=== PATIENT | female | born 1950 | race Caucasian/White ===

== ENCOUNTER 2017-04-24 09:19 | Inpatient (IN) | payer OTHER ==
[~2017-04-24 09:19] MED LIST: BACITRACIN 50,000 UNITS/10 ML SYR IRR ONE; BUPIVACAINE/EPI 0.25% 30 ML SDV ONE; THROMBIN (BOVINE) 20,000 UNIT VIAL TP ONE
[2017-04-24] MEDS ORDERED: ceFAZolin 2 GM/DEXTROSE 100 ML IV ONE (09:28)
[2017-04-24] MEDS ORDERED: LIDOCAINE 1% 2 ML INJ ID PRN (09:31)
[2017-04-24] MEDS ORDERED: LR 1,000 ML IV ONE (09:31)
[2017-04-24] MEDS ORDERED: POLYMYXIN B SULFATE 500,000 UNIT/10 ML SYR IRR ONE (11:17)
--- NOTE | 2017-04-24 11:46 | PDANEPAE ---
ANE Past Medical History - Cardiovascular History Hx Hypertension: No Hx Arrhythmias: No Hx Chest Pain: No Hx Coronary Artery / Peripheral Vascular Disease: No Hx CHF / Valvular Disease: No Hx Palpitations: No Cardiovascular History Comment: pcp watches bp, was on bystolic previously but bp was going to low so they dc'd it - Pulmonary History Hx COPD: No Hx Asthma/Reactive Airway Disease: No Hx Recent Upper Respiratory Infection: No Hx Oxygen in Use at Home: No Hx Sleep Apnea: No Sleep Apnea Screening Result - Last Documented: Negative - Neurologic History Hx Cerebrovascular Accident: Yes Hx Seizures: No Hx Dementia: No Neurologic History Comment: hx of cervical and lumbar fusions. 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 peripheral neuropathy. numbness and tingling to legs - Endocrine History Hx Diabetes: Yes Endocrine History Comment: type 2 - Renal History Hx Renal Disorders: No - Liver History Hx Hepatic Disorders: No - Neurological & Psychiatric Hx Hx Neurological and Psychiatric Disorders: Yes Neurological / Psychiatric History Comment: depression - Cancer History Hx Cancer: No - Congenital Disorder History Hx Congenital Disorders: No - GI History Hx Gastrointestinal Disorders: Yes Gastrointestinal History Comment: reflux occ uses zantac - Other Health History Other Health History: wears glasses/ contacts. upper denture. eczema occ - Chronic Pain History Chronic Pain: Yes (back, left leg, foot and arm) - Surgical History Prior Surgeries: 2016 left hip surgery from fall. cervical fusion c3-6 2007 or 2008. lower lumbar ANE Review of Systems - Exercise capacity METS (RN): 4 METS ANE Patient History - Allergies Allergies/Adverse Reactions: latex Allergy (Intermediate, Verified 04/07/17 14:06) Rash bacitracin [From Neosporin ([id number])] Allergy (Verified 04/24/17 10:32) neomycin [From Neosporin ([id number])] Allergy (Verified 04/24/17 10:32) Penicillins Allergy (Verified 04/07/17 14:06) Rash polymyxin B [From Neosporin ([id number])] Allergy (Verified 04/24/17 10:33) SWELLING AT SITE IT WAS APPLIED - Home Medications Home Medications: Cyclobenzaprine [Flexeril 10 MG (*)] 10 mg PO HS 04/07/17 [Last Taken 04/23/17] Diazepam [Valium 10 MG (*)] 10 mg PO DAILY PRN 04/07/17 [Last Taken 1 Month Ago] fentaNYL [Duragesic 50 MCG Patch (*)] 50 mcg TD Q72H 04/07/17 [Last Taken 06:00] metFORMIN HCL [Glucophage 500 mg (*)] 500 mg PO BIDMEAL 04/07/17 [Last Taken 09:00] oxyCODONE IR [Oxycodone Ir (*)] 5 mg PO Q4HRS 04/07/17 [Last Taken 04/24/17 06: 00] Alendronate Sodium [Fosamax 70 MG (*)] 70 mg PO SINGER@0700 04/24/17 [Last Taken ] Latanoprost 0.005% [Xalatan 0.005% (*)] 1 drops EACHEYE HS 04/24/17 [Last Taken 04/23/17] Ranitidine HCl [Zantac] 300 mg PO DAILY PRN 04/24/17 [Last Taken 04/24/17 06:00] - NPO status NPO Since - Liquids (Date): 04/23/17 NPO Since - Liquids (Time): 21:00 NPO Since - Solids (Date): 04/23/17 NPO Since - Solids (Time): 20:00 - Smoking Hx Smoking Status: Former smoker - Family Anes Hx Family Hx Anesthesia Complications: none ANE Labs/Vital Signs - Vital Signs Blood Pressure: 135/88 Heart Rate: 78 Respiratory Rate: 18 O2 Sat (%): 94 Height: 171.45 cm Weight: 72.575 kg ANE Physical Exam - Airway Mallampati Score: Class 2 Mouth exam: dentures - ASA Status ASA Status: III
[2017-04-24] MEDS ORDERED: PROPOFOL 200 MG/20 ML VIAL ONE (12:00)
[2017-04-24] MEDS ORDERED: MIDAZOLAM 2 MG/2 ML VIAL ONE (12:00)
[2017-04-24] MEDS ORDERED: fentaNYL 100 MCG/2 ML INJ ONE ×6 (12:00→17:19)
[2017-04-24] MEDS ORDERED: PROPOFOL/EMULSION 500 MG/50 ML BOTTLE IV ONE ×2 (12:01→14:55)
[2017-04-24] MEDS ORDERED: ONDANSETRON 4 MG/2 ML VIAL ONE (12:02)
[2017-04-24] MEDS ORDERED: PHENYLEPHRINE HCL 100 MCG/ML SYR ONE (12:02)
[2017-04-24] MEDS ORDERED: ROCURONIUM 50 MG/5 ML VIAL ONE (12:02)
--- NOTE | 2017-04-24 13:34 | PDHPUP ---
History & Physical Update H&P update statement: This history and physical update is based on an assessment of the patient which was completed after admission or registration (within 24 hours), but prior to the surgery/procedure. H&P update: H&P reviewed & patient examined, no change in patient's condition since H&P completed
[2017-04-24] MEDS ORDERED: BUPIVACAINE/EPI 0.25% 30 ML SDV ONE (14:54)
[2017-04-24] MEDS ORDERED: BUPIVACAINE 0.25% 30 ML SDV ONE (15:44)
[2017-04-24] MEDS ORDERED: BISACODYL 10 MG SUPP PR PRN (16:03)
[2017-04-24] MEDS ORDERED: diphenhydrAMINE 25 MG CAP PO PRN (16:03)
[2017-04-24] MEDS ORDERED: LACTULOSE 20 GM/30 ML UDCUP PO PRN (16:03)
[2017-04-24] MEDS ORDERED: NALOXONE HCL 0.4 MG/ML INJ IVP PRN ×2 (16:03→16:18)
[2017-04-24] MEDS ORDERED: MAGNESIUM HYDROXIDE 30 ML UDCUP PO PRN (16:03)
[2017-04-24] MEDS ORDERED: ONDANSETRON 4 MG/2 ML VIAL IVP PRN (16:03)
[2017-04-24] MEDS ORDERED: LR 500 ML IV PRN (16:18)
[2017-04-24] MEDS ORDERED: PROMETHAZINE HCL 25 MG/ML INJ IVP PRN (16:18)
[2017-04-24] MEDS ORDERED: MEPERIDINE 25 MG/ML SYR IVP PRN (16:18)
--- NOTE | 2017-04-24 16:19 | SOAPPROG ---
SOAP Progress Note Assessment/Plan: Assessment: 67 yo F sp C3/4, C5/6 ACDF and C3-6 posterior fusion Plan: stable to step down for pain managemnt PT/OT hard collar for 1 month lovenox starts POD #3 please call with neuro changes 04/24/17 16:19 Subjective: + neck pain, no arm pain Objective: Vital Signs Temp Pulse Resp BP Pulse Ox 36.8 C 78 18 135/88 H 94 04/24/17 11:52 04/24/17 11:52 04/24/17 11:52 04/24/17 11:52 04/24/17 11:52 awake, alert PERRL, No facial droop MAMADOU x 4, 5/5 + light touch ICD10 Worksheet Patient Problems: Problems Problem Status Onset Fusion of spine of lumbar region Acute DVT (deep venous thrombosis) Acute Pulmonary embolism Acute - ICD10 Problem Qualifiers (1) Fusion of spine of lumbar region
--- NOTE | 2017-04-24 16:20 | POSTANESTH ---
Post Anesthetic Evaluation Cardiovascular Status: Normal, Stable Respiratory Status: Normal, Stable Level of Consciousness/Mental Status: Can Participate in Eval Pain Control: Adequate, Prn Tx Ordered Nausea/Vomiting Control: Adequate, Prn Tx Ordered
[2017-04-24] MEDS: fentaNYL 100 MCG/2 ML INJ IVP PRN ×5 (16:26→17:20)
[2017-04-24] MEDS: fentaNYL 50 MCG PATCH TD SCH (16:50)
[2017-04-24] MEDS: DIAZEPAM 10 MG/2 ML SYR IVP PRN (20:43)
[2017-04-24] MEDS: FAMOTIDINE 20 MG TAB PO SCH (21:47)
[2017-04-24] MEDS: SENNOSIDES/DOCUSATE SODIUM TAB PO SCH (21:47)
[2017-04-24] MEDS: ACETAMINOPHEN 500 MG TAB PO SCH (21:55)
[2017-04-24] MEDS: oxyCODONE IR 5 MG TAB PO PRN (21:57)
[2017-04-24] MEDS: ceFAZolin 2 GM/DEXTROSE 100 ML IV SCH (21:58)
[2017-04-24] MEDS: POLYETHYLENE GLYCOL 3350 17 GM PKT PO SCH (21:58)
[2017-04-25] MEDS: DIAZEPAM 10 MG/2 ML SYR IVP PRN ×4 (01:08→21:08)
[2017-04-25] MEDS: oxyCODONE IR 5 MG TAB PO PRN (04:35)
[2017-04-25] MEDS: ceFAZolin 2 GM/DEXTROSE 100 ML IV SCH (04:36)
[2017-04-25 05:08] LABS: % IMMATURE GRANULYOCYTES 0.4 % (0.0-1.1); ABSOLUTE IMMATURE GRANULOCYTES 0.03 10^3/uL (0.00-0.10); ADD DIFF? NO; ADD MORPH? NO; ADD SCAN? NO; ATYPICAL LYMPHOCYTE FLAG 0 (0-99); FRAGMENT RBC FLAG 0 (0-99); HEMOGLOBIN 12.1 g/dL (12.6-16.3); LEFT SHIFT FLG 0 (0-99); LIPEMIA HEMOLYSIS FLAG 80 (0-99); MEAN CELL HEMOGLOBIN 30.9 pg (27.9-34.1); MEAN CELL HEMOGLOBIN CONCENTR. 32.7 g/dL (32.4-36.7); MEAN CELL VOLUME 94.6 fL (81.5-99.8); MEAN PLATELET VOLUME 9.8 fL (8.7-11.7); PLATELET CLUMPS FLAG 0 (0-99); PLATELET COUNT 146 10^3/uL (150-400); RED BLOOD CELL COUNT 3.91 10^6/uL (4.18-5.33); RED CELL DISTRIBUTION WIDTH 11.9 % (11.5-15.2)
[2017-04-25 05:20] LABS: ANION GAP 9 mEq/L (8-16); CALCIUM 8.4 mg/dL (8.5-10.4); CARBON DIOXIDE 24 mEq/l (22-31); CHLORIDE 106 mEq/L (97-110); CREATININE 0.6 mg/dL (0.6-1.0); GLOMERULAR FILTRATION RATE > 60; GLUCOSE 126 mg/dL (70-100); POTASSIUM 4.3 mEq/L (3.5-5.2); SODIUM 139 mEq/L (134-144)
[2017-04-25] MEDS: METHOCARBAMOL 750 MG TAB PO PRN (06:04)
[2017-04-25] MEDS: ACETAMINOPHEN 500 MG TAB PO SCH ×3 (06:04→21:14)
[2017-04-25] MEDS: NS 1,000 ML IV SCH (07:35)
--- NOTE | 2017-04-25 07:58 | SOAPPROG ---
SOAP Progress Note Assessment/Plan: Assessment: 67 yo female POD #1 s/p C3/4 redo acdf and C5/6 acdf with C3-6 posterior fusion chronic pain neuro stable Plan: transfer to floor after swallow eval PT/OT as tolerated today Cervical xrays today continue hard collar continue both JOSEPH drains DC aguillon Subjective: awake, alert, pain controlled, but requiring a lot of medications as expected She is swallowing water denies new numbness, tingling or weakness Objective: Vital Signs Temp Pulse Resp BP Pulse Ox 36.8 C 93 10 L 94/51 L 95 04/25/17 07:51 04/25/17 07:51 04/25/17 07:51 04/25/17 07:51 04/25/17 07:51 Laboratory Results 04/25/17 04:59 04/25/17 04:59 04/24/17 04/25/17 04/26/17 05:59 05:59 05:59 Intake Total 1781 Output Total 1635 Balance 146 Neuro: BRODY, sens +LT follows commands Ant/post dressings:CDI Ant JOSEPH:90ml Post JOSEPH: 270ml ICD10 Worksheet Patient Problems: Problems Problem Status Onset Fusion of spine of lumbar region Acute DVT (deep venous thrombosis) Acute Pulmonary embolism Acute
[2017-04-25] MEDS: SENNOSIDES/DOCUSATE SODIUM TAB PO SCH ×2 (10:30→21:14)
[2017-04-25] MEDS: FAMOTIDINE 20 MG TAB PO SCH ×2 (10:30→21:14)
[2017-04-25] MEDS: POLYETHYLENE GLYCOL 3350 17 GM PKT PO SCH ×3 (10:30→21:27)
[2017-04-25] MEDS: HYDROmorphONE/DILAUDID 6 MG/30 ML PCA IV PRN (18:15)
--- NOTE | 2017-04-25 20:32 | GOP ---
[f rep st] OPERATIVE REPORT DATE OF OPERATION: 04/24/2017 SURGEON: Gagan Hoang MD ACOUSTICAL INSTALLER: DENIZ Waldron ANESTHESIA: General endotracheal. 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 Adjacent level degeneration and spinal stenosis with spinal cord compression at C3-4. Progressive cervical spondolytic myelopathy. 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 Adjacent level degeneration and spinal stenosis with spinal cord compression at C3-4. Progressive cervical spondolytic myelopathy. PROCEDURE PERFORMED: C3-C6 posterior segmental (lateral mass screw) fixation and posterolateral fusion with local autograft, bone morphogenic protein, and morcellized Allograft. I used the intraoperative microscopy and fluoroscopy. FINDINGS: ESTIMATED BLOOD LOSS: 50 cc. INDICATIONS: The patient is a 67-year-old woman with intractable neck pain and progressive myelopathic symptoms secondary to a pseudoarthrosis/nonunion at the C5-6 level, status post a prior C4-6 anterior cervical diskectomy arthrodesis with plating. She also has adjacent degeneration at the C3-4 level with a large disk herniation and severe central canal stenosis and spinal cord compression. She present now for decompression and stabilization at that level, as well as the revision surgery at C5-6 and exploration of the spinal fusion at C4-5. DESCRIPTION OF PROCEDURE: After informed consent was obtained, and the anterior portion of the procedure was complete, the patient was repositioned prone with the head in the Carvajal beater head. The posterior cervical region was prepped and draped in sterile fashion. After fluoroscopic localization at the correct levels, the subcutaneous and intramuscular tissues were infiltrated with local anesthesia. A midline linear incision was then created from approximately C3 through C6, carried to the spinous processes. The dissection was carried down through the spinous processes, which were then incised using a monopolar electrocautery and the tissues carried in an avascular plane along the spinous processes and out the lamina bilaterally. The minimally invasive retractors were inserted and lateral mass screws were placed at C3, C4, C5 and C6 bilaterally. Each individual screw was tested neurophysiologically with monopolar electrical stimulation and interpretation of potentials by the surgeon. The rods were then placed and secured under maximal lordosis. The facet joints and lateral masses and laminae were then extensively decorticated and the residual local autograft along with bone morphogenic protein and morcellized Allograft was placed out laterally for posterolateral fusion from C3 through C6. Following this, a drain was placed. The subcutaneous and intramuscular tissues were re-infiltrated with local anesthesia and the wound was closed in layered fashion using interrupted Vicryl sutures followed by Steri -Strips on the skin. COMPLICATIONS: None. DISPOSITION: The patient is currently in the process of being repositioned for extubation. /[id number]/MODL MTDD
[2017-04-26] MEDS: DIAZEPAM 10 MG/2 ML SYR IVP PRN ×2 (02:22→14:31)
[2017-04-26] MEDS: HYDROmorphONE/DILAUDID 6 MG/30 ML PCA IV PRN (05:08)
[2017-04-26] MEDS: METHOCARBAMOL 750 MG TAB PO PRN ×3 (06:16→19:00)
[2017-04-26] MEDS: ACETAMINOPHEN 500 MG TAB PO SCH ×3 (06:16→20:38)
[2017-04-26] MEDS: SENNOSIDES/DOCUSATE SODIUM TAB PO SCH ×2 (08:33→20:38)
[2017-04-26] MEDS: FAMOTIDINE 20 MG TAB PO SCH ×2 (08:33→20:38)
[2017-04-26] MEDS: HYDROCODONE/APAP 10/325 TAB PO PRN ×3 (08:34→20:38)
[2017-04-26] MEDS: POLYETHYLENE GLYCOL 3350 17 GM PKT PO SCH ×3 (08:34→20:38)
--- NOTE | 2017-04-26 09:29 | NEUSURGPN ---
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 States muscle relaxants help. Objective: AAOx3 NAD VSS MAEx4 Motor 5/5 BUE anterior and posterior incisions dressed hard collar on JPx2 with serosanguineous dc in bulb Urinary Catheter in Place: No Catheter Insertion Date: 04/24/17 - Physician Discussed Patient with : Viktor Neurosurgery Physical Exam - Vitals, I&O, Labs I and O 04/25/17 04/26/17 04/27/17 05:59 05:59 05:59 Intake Total 1781 2217 Output Total 1635 1475 150 Balance 146 742 -150 Weight 74.8 kg Intake: Oral (ml) 100 450 IV Intake (ml) 650 IV Infused (ml) 1031 1767 Ns 1,000 ml @ 75 mls/hr 831 1767 IV CONT ERAN Rx#: [id number] ceFAZolin 2 GM/DEXTROSE 200 100 ml @ 200 mls/hr IV Q8H ERAN Rx#:[id number] Output: Urine (ml) 1275 1350 150 Bedside Commode 1100 150 Catheter 1275 250 JOSEPH Drain Output (ml) 360 125 #1 Anterior Neck Marvin 90 30 Flores #2 Posterior Neck Marvin 270 95 Flores Other: Intake Quantity No No Sufficient Number of Voids Bedside Commode 1 Vital Signs Temp Pulse Resp BP Pulse Ox 36.9 C 95 13 137/73 H 95 04/26/17 07:51 04/26/17 07:51 04/26/17 04:00 04/26/17 07:51 04/26/17 07:51 Laboratory Results 04/25/17 04:59 04/25/17 04:59 ICD10 Worksheet Patient Problems: Problems Problem Status Onset Fusion of spine of lumbar region Acute DVT (deep venous thrombosis) Acute Pulmonary embolism Acute
[2017-04-26] MEDS: oxyCODONE IR 5 MG TAB PO PRN ×2 (11:48→17:29)
--- NOTE | 2017-04-26 14:14 | GOP ---
[f rep st] OPERATIVE REPORT DATE OF OPERATION: 04/24/2017 SURGEON: Gagan Hoang MD LOGISTICAL ENGINEER: DENIZ Waldron. ANESTHESIA: General endotracheal. PREOPERATIVE DIAGNOSIS: C5-6 nonunion/pseudoarthrosis status post C4 through C6 anterior cervical d iskectomy and fusion with plating. Adjacent level degeneration and spinal stenosis with spinal cord compression at C3-4. Progressive cervical spondylitic myelopathy. POSTOPERATIVE DIAGNOSIS: C5-6 nonunion/pseudoarthrosis status post C4 through C6 anterior cervical diskectomy and fusion with plating. Adjacent level degeneration and spinal stenosis with spinal cord compression at C3-4. Progressive cervical spondylitic myelopathy. PROCEDURE PERFORMED: Removal of anterior cervical plate C4 through C6 with exploration of spinal fu daniel at C4-5 and redo anterior cervical diskectomy and arthrodesis at C5-6 with partial C5 vertebral corpectomy and decompression of the spinal cord. Redo fusion/placement of PEEK interbody graft at C 5-6 with anterior cervical plating and screws. The C3-4 complete anterior cervical diskectomy and ar throdesis with an 11 mm structural PEEK interbody spacer with local autograft and demineralized bone matrix. Placement of a Medtronic anterior cervical plate with self-drilling screws. Use of intraope rative microscopy and fluoroscopy. FINDINGS: ESTIMATED BLOOD LOSS: 75 cc. INDICATIONS: The patient is a 67-year-old woman with intractable neck pain, and progressive myelopa thic symptoms secondary to a pseudoarthrosis/nonunion at the C5-6 level, status post a prior C4 thro ugh C6 anterior cervical diskectomy and arthrodesis with plating. She also has adjacent level degene ration at the C3-4 level with a large disc herniation and severe central canal stenosis, spinal cord compression. She presents now for decompression and stabilization at that level, as well as the rev ision surgery at C5-6 and exploration of thespinal fusion at C4-5. DESCRIPTION OF PROCEDURE: After informed consent was obtained, the patient was taken to the operati ng room and placed in the supine position with the head in the Halter retractor system. The anterior cervical region was prepped and draped in sterile fashion. After fluoroscopic localization of the c orrect levels, the subcutaneous and intramuscular tissues were infiltrated with local anesthesia. A horizontal linear incision was then created in a skin crease at the level of C4-5 interspace. This was carried through the platysmal layer using the monopolar electrocautery and carried in the avascu lar plane between the sternocleidomastoid and carotid sheath laterally and the strap muscles, trache a, and esophagus medially, down to the prevertebral fascia, which was carefully incised with Metzenb aum scissors. The prior plate was identified and carefully removed at the C4-C6 levels. The C4-5 lev el was explored and inspected. The fusion was solid. The C5-6 level was evaluated and noted to be a nonunion. This was carefully drilled out and the prior placed PEEK interbody spacer was removed. Th ere was quite a bit of nonunion fibrotic material that needed to be drilled out into the C5 vertebra l body measuring approximately 50% of the vertebral body for a partial C5 vertebral corpectomy. Foll owing adequate decompression, the remaining endplates were prepared and an appropriately size 12 mm structural PEEK interbody spacer packed with local autograft and demineralized bone matrix was place d in the interspace under fluoroscopic image guidance. The distraction was removed an appropriately sized Medtronic anterior cervical plate was then placed and secured at C5-6 with self-drilling screw s. Following this, the microscope was angled more rostrally and a similar C3-4 complete anterior cer vical diskectomy and arthrodesis was performed with preparation of the endplates and removal of the posterior longitudinal ligament and osteophytes for a thorough decompression of the central canal an d spinal cord. Bilateral foraminotomies were performed. Following preparation of the endplates, an a ppropriately sized 11 mm structural PEEK interbody spacer packed with local autograft, and demineral ized bone matrix was placed in the interspace under fluoroscopic image guidance. Following this, the distraction was removed and an appropriately sized Medtronic anterior cervical plate was then place d and secured with self-drilling screws under fluoroscopic image guidance. Following re-verification and good position of the 2 plates, 8 screws and 2 interbody spacers, a drain was placed. The subcut aneous and intramuscular tissues were infiltrated with local anesthesia. The wound was closed in a l ayered fashion using interrupted Vicryl sutures, followed by Steri-Strips on the skin. COMPLICATIONS: None. DISPOSITION: The patient is currently in the process of being repositioned for the posterior portio n of the operation. /[id number]/MODL
[2017-04-26] MEDS: DIAZEPAM 5 MG TAB PO PRN (20:38)
[2017-04-27] MEDS: HYDROCODONE/APAP 10/325 TAB PO PRN ×4 (02:56→23:29)
[2017-04-27] MEDS: ACETAMINOPHEN 500 MG TAB PO SCH (06:20)
[2017-04-27] MEDS: DIAZEPAM 5 MG TAB PO PRN ×2 (07:51→20:50)
[2017-04-27] MEDS: POLYETHYLENE GLYCOL 3350 17 GM PKT PO SCH ×3 (08:55→20:51)
[2017-04-27] MEDS: FAMOTIDINE 20 MG TAB PO SCH ×2 (08:55→20:50)
[2017-04-27] MEDS: ENOXAPARIN 40 MG/0.4 ML SYR SC SCH (08:55)
[2017-04-27] MEDS: SENNOSIDES/DOCUSATE SODIUM TAB PO SCH ×2 (08:55→20:50)
--- NOTE | 2017-04-27 09:58 | NEUSURGPN ---
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 C/o posterior neck pain Objective: AAOx3 NAD VSS MAEx4 Motor 5/5 BUE - poor effort Motor 5/5 BLE C collar on Anterior/posterior incisions cdi dressing in place +LT Urinary Catheter in Place: No Catheter Insertion Date: 04/24/17 Neurosurgery Physical Exam - Vitals, I&O, Labs I and O 04/26/17 04/27/17 04/28/17 05:59 05:59 05:59 Intake Total 2217 890 Output Total 1475 1570 Balance 742 -680 Intake: Oral (ml) 450 740 IV Infused (ml) 1767 150 Ns 1,000 ml @ 75 mls/hr 1767 150 IV CONT ERAN Rx#: [id number] Output: Urine (ml) 1350 1550 Bedside Commode 1100 1550 Catheter 250 JOSEPH Drain Output (ml) 125 20 #1 Anterior Neck Marvin 30 Flores #2 Posterior Neck Marvin 95 20 Flores Other: Intake Quantity No Sufficient Number of Voids Bedside Commode 1 Vital Signs Temp Pulse Resp BP Pulse Ox 36.5 C 78 10 L 94/62 L 98 04/27/17 07:53 04/27/17 07:53 04/27/17 07:53 04/27/17 07:53 04/27/17 07:53 Laboratory Results 04/25/17 04:59 04/25/17 04:59 ICD10 Worksheet Patient Problems: Problems Problem Status Onset Pulmonary embolism Acute DVT (deep venous thrombosis) Acute Fusion of spine of lumbar region Acute
[2017-04-27] MEDS: METHOCARBAMOL 750 MG TAB PO PRN (13:51)
[2017-04-27] MEDS: fentaNYL 50 MCG PATCH TD SCH (16:20)
[2017-04-27] MEDS: ONDANSETRON DISINTEGRATING 4 MG TAB PO PRN (20:50)
[2017-04-27] MEDS: oxyCODONE IR 5 MG TAB PO PRN (20:50)
[2017-04-28] MEDS: oxyCODONE IR 5 MG TAB PO PRN ×4 (02:58→22:34)
[2017-04-28] MEDS: DIAZEPAM 5 MG TAB PO PRN ×2 (02:59→10:17)
[2017-04-28] MEDS: ONDANSETRON DISINTEGRATING 4 MG TAB PO PRN (03:03)
[2017-04-28] MEDS: HYDROCODONE/APAP 10/325 TAB PO PRN ×2 (08:26→19:51)
[2017-04-28] MEDS: SENNOSIDES/DOCUSATE SODIUM TAB PO SCH ×2 (08:26→19:51)
[2017-04-28] MEDS: POLYETHYLENE GLYCOL 3350 17 GM PKT PO SCH ×4 (08:26→22:35)
[2017-04-28] MEDS: FAMOTIDINE 20 MG TAB PO SCH ×2 (08:26→19:51)
[2017-04-28] MEDS: ENOXAPARIN 40 MG/0.4 ML SYR SC SCH (08:27)
--- NOTE | 2017-04-28 10:39 | NEUSURGPN ---
Date of Surgery: 04/24/17 Post Op Day: 4 Assessment/Plan: Assessment: 67 yo female POD #4 s/p C3/4 redo acdf and C5/6 acdf with C3-6 posterior fusion Plan: -pt with chronic pain and working on pain control at this time -neuro stable -transfer to floor when bed available -PT/OT/HOSPICE CLINICAL MARKETER as tolerated today -Cervical xrays show stable hardware -Pain management - continue current regimen, ice packs PRN, pt has Fentanyl patch ordered already -Continue hard collar-will order [place] collar to see if this is more comfortable -JPs removed -call NS with any issues Subjective: Awake and alert. Sitting in chair. No alfred/chest/abd or gu complaints. No f/c/n /v/d. Objective: AAOx3 NAD VSS MAEx4 Motor 5/5 BUE - poor effort Motor 5/5 BLE C collar on-no skin issues Anterior/posterior incisions cdi dressing in place +LT Neuro Check Frequency: per routine Urinary Catheter in Place: No Catheter Insertion Date: 04/24/17 - Physician Discussed Patient with : Viktor Neurosurgery Physical Exam - Vitals, I&O, Labs I and O 04/27/17 04/28/17 04/29/17 05:59 05:59 05:59 Intake Total 890 800 Output Total 1570 300 Balance -680 500 Intake: Oral (ml) 740 800 IV Infused (ml) 150 Ns 1,000 ml @ 75 mls/hr 150 IV CONT ERAN Rx#: [id number] Output: Urine (ml) 1550 300 Bedside Commode 1550 150 Toilet 150 JOSEPH Drain Output (ml) 20 #2 Posterior Neck Marvin 20 Flores Other: Intake Quantity Yes Sufficient Number of Voids Bedside Commode 1 2 Toilet 1 Vital Signs Temp Pulse Resp BP Pulse Ox 36.7 C 83 17 107/52 L 99 04/28/17 08:00 04/28/17 08:00 04/27/17 23:33 04/28/17 08:00 04/28/17 08:00 Laboratory Results 04/25/17 04:59 04/25/17 04:59 ICD10 Worksheet Patient Problems: Problems Problem Status Onset Fusion of spine of lumbar region Acute DVT (deep venous thrombosis) Acute Pulmonary embolism Acute
[2017-04-28] MEDS: METHOCARBAMOL 750 MG TAB PO PRN (14:33)
--- NOTE | 2017-04-29 07:28 | SOAPPROG ---
SOAP Progress Note Assessment/Plan: Assessment: 67 yo female s/p C3/4 redo acdf and C5/6 acdf with C3-6 posterior fusion chronic pain neuro stable Plan: CPM with PT/OT/ST Continue Hard collar to floor when bed available D/W Dr Hoang 04/29/17 07:28 04/29/17 07:29 Subjective: Awake, alert, asking for pain medicine. Denies numbness, tingling or weakness Objective: Vital Signs Temp Pulse Resp BP Pulse Ox 37.0 C 110 H 18 115/81 H 97 04/29/17 00:00 04/29/17 00:00 04/29/17 00:00 04/29/17 00:00 04/29/17 00:00 Laboratory Results 04/25/17 04:59 04/25/17 04:59 04/28/17 04/29/17 04/30/17 05:59 05:59 05:59 Intake Total 800 880 Output Total 300 350 Balance 500 530 Incision x 2 CDI Neuro: BRODY, sens +LT follows commands, oriented x4 ICD10 Worksheet Patient Problems: Problems Problem Status Onset Fusion of spine of lumbar region Acute DVT (deep venous thrombosis) Acute Pulmonary embolism Acute
[2017-04-29] MEDS: HYDROCODONE/APAP 10/325 TAB PO PRN ×3 (07:37→23:32)
[2017-04-29] MEDS: FAMOTIDINE 20 MG TAB PO SCH ×2 (07:38→20:13)
[2017-04-29] MEDS: ENOXAPARIN 40 MG/0.4 ML SYR SC SCH (07:47)
[2017-04-29] MEDS: POLYETHYLENE GLYCOL 3350 17 GM PKT PO SCH ×3 (07:52→20:13)
[2017-04-29] MEDS: SENNOSIDES/DOCUSATE SODIUM TAB PO SCH ×2 (07:52→20:12)
[2017-04-29] MEDS: oxyCODONE IR 5 MG TAB PO PRN ×2 (10:30→20:13)
[2017-04-29] MEDS: METHOCARBAMOL 750 MG TAB PO PRN ×2 (13:03→20:13)
[2017-04-29] MEDS ORDERED: NON-FORMULARY NEW DRUG (Ranitidine Hcl [Zantac] 300 MG) PO PRN (14:12)
[2017-04-29] MEDS ORDERED: FAMOTIDINE 20 MG TAB PO PRN (14:16)
[2017-04-29] MEDS: DIAZEPAM 5 MG TAB PO PRN ×2 (14:48→23:32)
[2017-04-29] MEDS: metFORMIN HCL 500 MG TAB PO SCH (17:27)
[2017-04-29] MEDS: LATANOPROST 0.005% 2.5 ML OPHT DROPS EACHEYE SCH (21:01)
--- NOTE | 2017-04-30 07:55 | SOAPPROG ---
SOAP Progress Note Assessment/Plan: Assessment: 67 yo female s/p C3/4 redo acdf and C5/6 acdf with C3-6 posterior fusion chronic pain neuro stable Plan: CPM with PT/OT/ST Continue Hard collar to floor when bed available D/W Dr Hoang Pt deciding on Dobhoff today due to persistent aspiration of all texture foods Subjective: asleep, wakes easily, pain controlled, she feels like her swallowing is better this morning. Objective: Vital Signs Temp Pulse Resp BP Pulse Ox 37.1 C 88 16 128/70 H 99 04/29/17 20:19 04/29/17 20:19 04/29/17 20:19 04/29/17 20:19 04/29/17 20:19 Laboratory Results 04/25/17 04:59 04/25/17 04:59 04/29/17 04/30/17 05/01/17 05:59 05:59 05:59 Intake Total 880 Output Total 350 500 Balance 530 -500 Neuro: BRODY, sens +Lt follows commands ambulates with walker ICD10 Worksheet Patient Problems: Problems Problem Status Onset Fusion of spine of lumbar region Acute DVT (deep venous thrombosis) Acute Pulmonary embolism Acute
[2017-04-30] MEDS: metFORMIN HCL 500 MG TAB PO SCH ×2 (08:05→17:53)
[2017-04-30] MEDS: METHOCARBAMOL 750 MG TAB PO PRN ×2 (08:16→16:40)
[2017-04-30] MEDS: oxyCODONE IR 5 MG TAB PO PRN ×2 (08:16→13:40)
[2017-04-30] MEDS: NS 1,000 ML IV SCH ×2 (08:16→18:08)
[2017-04-30] MEDS: ENOXAPARIN 40 MG/0.4 ML SYR SC SCH (09:09)
[2017-04-30] MEDS: POLYETHYLENE GLYCOL 3350 17 GM PKT PO SCH ×3 (09:10→20:11)
[2017-04-30] MEDS: SENNOSIDES/DOCUSATE SODIUM TAB PO SCH ×2 (09:10→20:11)
[2017-04-30] MEDS: HYDROCODONE/APAP 10/325 TAB PO PRN (10:31)
[2017-04-30] MEDS: fentaNYL 50 MCG PATCH TD SCH (16:40)
[2017-04-30] MEDS: LATANOPROST 0.005% 2.5 ML OPHT DROPS EACHEYE SCH (20:11)
[2017-05-01 05:13] LABS: HEMATOCRIT 34.7 % (38.0-47.0); HEMOGLOBIN 11.3 g/dL (12.6-16.3); MEAN CELL HEMOGLOBIN 31.1 pg (27.9-34.1); MEAN CELL HEMOGLOBIN CONCENTR. 32.6 g/dL (32.4-36.7); MEAN CELL VOLUME 95.6 fL (81.5-99.8); RED BLOOD CELL COUNT 3.63 10^6/uL (4.18-5.33); RED CELL DISTRIBUTION WIDTH 11.8 % (11.5-15.2)
[2017-05-01 05:18] LABS: APTT 26.3 SEC (23.0-38.0); INR 1.08 (0.83-1.16); PROTIME(PATIENT) 13.9 SEC (12.0-15.0)
[2017-05-01 05:31] LABS: ALANINE AMINOTRANSFERASE 25 IU/L (9-52); ALBUMIN 3.2 g/dL (3.5-5.0); ALKALINE PHOSPHATASE 97 IU/L (38-126); ANION GAP 11 mEq/L (8-16); ASPARTATE AMINOTRANSFERASE 16 IU/L (14-46); BILIRUBIN,TOTAL 0.4 mg/dL (0.1-1.4); CALCIUM 9.3 mg/dL (8.5-10.4); CARBON DIOXIDE 26 mEq/l (22-31); CHLORIDE 103 mEq/L (97-110); CREATININE 0.6 mg/dL (0.6-1.0); GLOMERULAR FILTRATION RATE > 60; GLUCOSE 127 mg/dL (70-100); POTASSIUM 4.2 mEq/L (3.5-5.2); SODIUM 140 mEq/L (134-144); TOTAL PROTEIN 5.9 g/dL (6.3-8.2)
--- NOTE | 2017-05-01 07:14 | NEUSURGPN ---
Assessment/Plan: Assessment: 67 yo female s/p C3/4 redo acdf and C5/6 acdf with C3-6 posterior fusion chronic pain neuro stable Plan: CPM with PT/OT/ST Continue Hard collar Continues to aspirate - agrees to PEG placement D/W Dr Hoang Subjective: Pt resting in bed, states she doesn't want the tube through her nose but agrees to PEG placement Objective: AAOx3 NAD VSS MAEx4 Motor 5/5 BUE/BLE Anterior and posterior incisions cdi - steri strips in place +LT Urinary Catheter in Place: No Catheter Insertion Date: 04/24/17 - Physician Discussed Patient with : Viktor Neurosurgery Physical Exam - Vitals, I&O, Labs I and O 04/30/17 05/01/17 05/02/17 05:59 05:59 05:59 Intake Total 825 Output Total 500 Balance -500 825 Intake: Oral (ml) 0 IV Infused (ml) 825 Ns 1,000 ml @ 75 mls/hr 825 IV CONT ERAN Rx#: [id number] Output: Urine (ml) 500 Bedside Commode 200 Toilet 300 Other: Intake Quantity No Sufficient Number of Voids Bedside Commode 1 Toilet 1 1 Number of Stools Toilet 1 Vital Signs Temp Pulse Resp BP Pulse Ox 36.6 C 100 18 147/95 H 93 05/01/17 04:11 05/01/17 04:11 05/01/17 04:11 05/01/17 04:11 05/01/17 04:11 Laboratory Results 05/01/17 04:25 05/01/17 04:25 ICD10 Worksheet Patient Problems: Problems Problem Status Onset Fusion of spine of lumbar region Acute DVT (deep venous thrombosis) Acute Pulmonary embolism Acute
[2017-05-01] MEDS: DIAZEPAM 10 MG/2 ML SYR IVP PRN (07:32)
[2017-05-01] MEDS: metFORMIN HCL 500 MG TAB PO SCH ×2 (08:42→19:15)
[2017-05-01] MEDS: SENNOSIDES/DOCUSATE SODIUM TAB PO SCH ×2 (08:43→19:16)
[2017-05-01] MEDS: POLYETHYLENE GLYCOL 3350 17 GM PKT PO SCH ×3 (08:43→19:16)
[2017-05-01] MEDS ORDERED: LIDOCAINE 1% 300 MG/30 ML SDV ONE (09:25)
[2017-05-01] MEDS ORDERED: LIDOCAINE 2% JELLY 20 ML (UROJECT) ONE (09:25)
[2017-05-01] MEDS ORDERED: GLUCAGON,HUMAN RECOMBINANT 1 MG VIAL ONE (09:40)
[2017-05-01] MEDS ORDERED: ATROPINE SULFATE 1 MG/ML VIAL ONE (10:05)
[2017-05-01] MEDS ORDERED: IOPAMIDOL (ISOVUE-300) 100 ML BTL ONE ×2 (10:17→18:49)
--- NOTE | 2017-05-01 10:36 | POSTOPPROG ---
Post Op Note Date of Operation: 05/01/17 Surgeon: Catrachito Keller Anesthesia: IV Sedation (100 mcg fentanyl, 1.5 mg Versed) Pre-op Diagnosis: Post-op dysphagia Post-op Diagnosis: Same Indication: Post-op dysphagia Procedure: Gastrostomy tube placement Findings: 20-Fr CUAUHTEMOC gastrostomy tube placed. See report for details. Inf/Abcess present in the surg proc area at time of surgery?: No EBL: Minimal Total fluids administered: 400 mL Complications: No immediate
--- NOTE | 2017-05-01 10:43 | CPEKG ---
Heart Rate: 84 RR Interval: 714 P-R Interval: 232 QRSD Interval: 76 QT Interval: 380 QTC Interval: 450 P Pierce: 69 QRS Pierce: 20 T Wave Pierce: 63 EKG Severity - ABNORMAL ECG - EKG Impression: SINUS RHYTHM EKG Impression: FIRST DEGREE AV BLOCK EKG Impression: BORDERLINE R WAVE PROGRESSION, ANTERIOR LEADS Electronically Signed By: Wallace Pittman 01-May-2017 11:23:25
[2017-05-01] MEDS ORDERED: HYDROmorphONE/DILAUDID 1 MG/ML SYR IVP ONE (11:15)
[2017-05-01] MEDS: NS 1,000 ML IV SCH (12:03)
[2017-05-01] MEDS: HYDROmorphONE/DILAUDID 6 MG/30 ML PCA IV PRN (12:38)
--- NOTE | 2017-05-01 13:26 | NEUSURGPN ---
Assessment/Plan: Assessment: I was contacted by Dr. Keller from Interventional radiology today who performed the patient's PEG today and relayed to me that she went into brief asystole but remained awake and alert. Post procedure her vitals were BP 145/82 , HR 86 and o2 sat of 97% on face mask. He recommended transfer to tele and cardiology consult. I have been in touch with Dr. Jeremy Pittman who will see the patient who is now in room 2004. Catheter Insertion Date: 04/24/17 Neurosurgery Physical Exam - Vitals, I&O, Labs I and O 04/30/17 05/01/17 05/02/17 05:59 05:59 05:59 Intake Total 825 550 Output Total 500 250 Balance -500 825 300 Intake: Oral (ml) 0 0 IV Intake (ml) 550 IV Infused (ml) 825 Ns 1,000 ml @ 75 mls/hr 825 IV CONT ERAN Rx#: [id number] Output: Urine (ml) 500 250 Bedside Commode 200 250 Toilet 300 Other: Intake Quantity No Sufficient Number of Voids Bedside Commode 1 1 Toilet 1 1 Number of Stools Toilet 1 Vital Signs Temp Pulse Resp BP Pulse Ox 36.6 C 84 15 138/84 H 99 05/01/17 12:00 05/01/17 12:00 05/01/17 12:00 05/01/17 12:00 05/01/17 12:00 Laboratory Results 05/01/17 04:25 05/01/17 04:25 ICD10 Worksheet Patient Problems: Problems Problem Status Onset Fusion of spine of lumbar region Acute DVT (deep venous thrombosis) Acute Pulmonary embolism Acute
--- NOTE | 2017-05-01 16:11 | ECHO ---
[id number] + + [address] : : [place] [address] : : [phone] + + Adult Echocardiographic Report + -----+ :Name: LELAND STERN LStudy Date: 05/01/2017 01:57 PM : : Hospital Admission Number: [id number] Location : 205: :: 1950 Gender: Female Height: 67 in : :Age: 67 yrs Race: WH Weight: 162 lb : :Reason For Study: Eval LV Fx : : BSA: 1.8 meters2 : :History: Brief asystole during IR procedure : + -----+ MMode/2D Measurements \T\ Calculations IVSd: 0.81 cm LVIDd: 4.4 cm FS: 35.5 % Ao root diam: 3.0 cm LVPWd: 1.0 cm LVIDs: 2.8 cm EDV(Teich): 87.0 ml ACS: 1.7 cm ESV(Teich): 30.3 ml EF(Teich): 65.1 % Normal Measurement Values: + + :LVIDd (3.5-5.7cm) IVSd (0.6-1.1cm) LVPWd (0.6-1.1cm) Aortic Root (2.0-3.7cm)Left Atrium (1.5-4.0cm): :LV Vol(d) (76-115ml) LV Vol(s) (29-48ml) Ejec Fraction (50-65%)PV Nathen (0.6- 1.2m/s) TV Nathen (0.4-1.0m/s) : :MV E Nathen (0.8-1.0m/s)MV A Nathen (0.3-1.0m/s)LVOT Nathen (0.7-1.2m/s) Asc Ao Nathen ( 0.9-1.8m/s) : + + Doppler Measurements \T\ Calculations MV E max nathen: Ao V2 max: LV V1 max: PA V2 max: 64.2 cm/sec 109.9 cm/sec 75.5 cm/sec 111.3 cm/sec MV A max nathen: Ao max PG: LV V1 max PG: PA max P.6 cm/sec 4.8 mmHg 2.3 mmHg 5.0 mmHg MV E/A: 0.61 Left Ventricle The left ventricle is normal in size. There is normal left ventricular wall thickness. The left ventricular ejection fraction is normal. Ejection Fraction = 65%. There is Doppler evidence for diastolic dysfunction. The left ventricular wall motion is normal. Tachycardia. Right Ventricle The right ventricle is normal in size and function. Atria The left atrial size is normal. Right atrial size is normal. Mitral Valve The mitral valve is normal in structure and function. There is no evidence of mitral valve prolapse. There is no mitral valve stenosis. There is no mitral regurgitation noted. Tricuspid Valve Normal tricuspid valve. There is trace tricuspid regurgitation. Right ventricular systolic pressure is normal. Aortic Valve The aortic valve is normal in structure and function. There is no aortic stenosis. There is no aortic insufficiency. Pulmonic Valve The pulmonic valve is normal in structure and function. There is no pulmonic valvular regurgitation. Great Vessels The aortic root is normal size. Pericardium/Pleural There is no pericardial effusion. No pericardial effusion due to dressings post procedure. Conclusion A complete two-dimensional transthoracic echocardiogram was performed (2D, M-mode, Doppler and color flow Doppler). The left ventricle is normal in size. The left ventricular ejection fraction is normal. Ejection Fraction = 65%. There is Doppler evidence for diastolic dysfunction. The left ventricular wall motion is normal. Tachycardia The right ventricle is normal in size and function. The left atrial size is normal. The mitral valve is normal in structure and function. There is trace tricuspid regurgitation. Right ventricular systolic pressure is normal. The aortic valve is normal in structure and function. There is no pericardial effusion. No pericardial effusion due to dressings post procedure. Final Reading Physician: Dana Pereyraronickassie signed on 05/01/2017 04:09 PM Ordering Physician: Leonard Boyd Performed By: Kenny Nguyen, CRICKETCS
[2017-05-01 16:28] LABS: HEMATOCRIT 34.7 % (38.0-47.0); HEMOGLOBIN 11.2 g/dL (12.6-16.3)
[2017-05-01 16:50] LABS: ANION GAP 14 mEq/L (8-16); CARBON DIOXIDE 25 mEq/l (22-31); CHLORIDE 102 mEq/L (97-110); CREATININE 0.5 mg/dL (0.6-1.0); GLOMERULAR FILTRATION RATE > 60; GLUCOSE 115 mg/dL (70-100); MAGNESIUM 1.6 mg/dL (1.6-2.3); POTASSIUM 4.3 mEq/L (3.5-5.2); SODIUM 141 mEq/L (134-144)
[2017-05-01 17:03] LABS: TROPONIN I < 0.012 ng/mL (0-0.034)
[2017-05-01] MEDS ORDERED: MAGNESIUM SULF 1 GM/DEXTROSE 100 ML IV ONE (19:06)
[2017-05-01] MEDS: LATANOPROST 0.005% 2.5 ML OPHT DROPS EACHEYE SCH (19:57)
--- NOTE | 2017-05-01 20:06 | GCON ---
[f rep st] CONSULTATION CARDIOLOGY CONSULTATION INDICATION FOR CARDIOLOGY CONSULTATION: During G tube surgical procedure, patient was noted to have a 5.4 second ventricular pause. HISTORY OF PRESENT ILLNESS: Please note, patient is somewhat sedated, and partial history taken from the patient and from patient's chart. The patient is a 67-year-old female with significant past history that includes CVA, DVTs, pulmonary embolisms, and diabetes. She has also had a carcinoid rectal tumor. The patient denies any significant cardiac history. Reports no history of chest pain or pressure. She has been having ongoing pain issues into her lower extremities, bilateral since April of 2016. She is known to have preexisting dysphagia and hoarseness since CVA in 2014. She recently underwent a cervical spine fusion, anterior/posterior approach by Dr. Hoang on April 24. She appeared to be stable, unfortunately, she was having swallowing difficulties with food. She did have a swallow evaluation done on April 29, showing moderate oropharyngeal dysmotility associated with prevertebral soft tissue swelling resulting in intermittent small volume aspiration with thin and nectar thick consistencies. Due to this, it was decided that she would have a gastrectomy tube in place, which she underwent this morning. Per Dr. Keller, during procedure, she had been complaining of significant neck generalized pain. It was noted on cardiac monitoring of a brief 5.4 second episode of complete heart block with no ventricular escape rhythm. Dr. Keller reprot that the patient tyson not loose conscious but did have a drop in her systolic blood pressure of 20 mmHg, she was placed in Trendelenburg, and was given IV fluid. Post procedure, her vital signs remained stable. She was ultimately transferred to the PCU afterwards. Per the nursing staff, on the PCU, she has been stable. Reviewing her continuous cardiac monitoring, it has been noted that she did have a small 10- beat run of SVT, but no significant malignant arrhythmias or pauses. She did undergo a postprocedural 12-lead electrocardiogram which showed sinus rhythm with first-degree AV block, poor R-wave progression in anterior leads, no significant ST or T-wave abnormalities suggesting of ischemia. Patient reports no history of chest pressure or pain, denies of any shortness of breath, has had no orthopnea, PND, edema, lightheadedness, near-syncope, or syncopal events. Denies of any new symptoms suggestive of TIA or CVA. She has cardiac risk factors that include age, previous smoker, she is uncertain what her cholesterol status is, and denies of any significant family history of coronary artery disease. PAST MEDICAL HISTORY: 1. Includes previous CVA in February of 2015. 2. Dysphagia and hoarseness since CVA in 2014. 3. Blood clots in her left foot in 2013. 4. Pulmonary embolisms. PAST SURGICAL HISTORY: 1. Includes most recently, cervical fusion as mentioned above. 2. C4 through C6 ACDF, 2008. 3. IVC filter. 4. Rectal carcinoma tumor surgery. SOCIAL HISTORY: The patient is a former smoker. She is not a heavy drinker. FAMILY HISTORY: Her dad of a CVA. ALLERGIES: 1. Latex. 2. Bactrim. 3. Neomycin. 4. Penicillins. 5. Polymyxin B. HOME MEDICATIONS: 1. Oxycodone IR 5 mg p.o. q.4 hours. 2. Metformin 500 mg p.o. twice daily. 3. Fentanyl 50 mcg transdermal every 72 hours. 4. Zantac 300 mg p.o. daily p.r.n. 5. 1 drop each eye q.h.s. 6. Valium 10 mg p.o. daily p.r.n. 7. Flexeril 10 mg p.o. at bedtime. 8. Fosamax 70 mg p.o. daily. REVIEW OF SYSTEMS: A 10-point review of systems done on patient, all negative except as mentioned above. PHYSICAL EXAMINATION: GENERAL: Medium built, female. She is alert to person, place, time, and situation; mildly sedated with IV narcotics at this time. Does wake up and follow the questions appropriately. VITAL SIGNS: Blood pressure of 136/79, heart rate 99, sinus rhythm on the monitor. Respirations 13. Saturating 98% on 2 L nasal cannula. Temperature 36.6 degrees Celsius. HEENT: Head is normocephalic. Lips and tongue are pink and moist with no signs of cyanosis. Conjunctivae pink. NECK: Trachea is midline , incision anterior neck is clean, dry and intact with no signs of redness, swelling or drainage. C-collar in place, unable to assess carotids or JVD at this time. RESPIRATORY: Lungs diminished in bases bilateral. No rhonchi, rales or wheezing noted. CARDIAC: Regular rate, regular rhythm, S1, S2, no S3 , S4, gallops, rubs, or murmurs noted. ABDOMEN: Soft,tender. New G tube in place in left upper quadrant, dressing intact with no redness, swelling, drainage or bleeding noted. Patient is tender around site. Bowel sounds x 4 quadrants. SKIN: Pale, warm, dry, no cyanosis, no clubbing, no peripheral edema. VASCULAR: +2 radials bilateral, +2 dorsal pedal and posterior tibial pulses bilateral. LABORATORY STUDIES: Laboratory studies drawn this morning showed WBC 5.29, hemoglobin 11.3, hematocrit of 34.7, platelet count of 186. INR was noted to be 1.08. Chemistries drawn postprocedure show sodium of 141, potassium 4.3, chloride 102, CO2 25, BUN 15, creatinine 0.5, glucose 115, calcium 9.0, magnesium 1.6, troponin less than 0.012. TSH drawn this morning was 1.340. STUDIES: Surgical procedure of spinal fusion and G tube placement as above. Electrocardiogram as above. Echocardiogram done this afternoon showing LV of normal size with EF of 65%. No wall motion abnormalities, evidence of diastolic dysfunction, RV is normal size and function, LA is normal, mitral valve was normal in structure and function, trace TR, RVSP within normal limits. Aortic valve was normal in structure, no pericardial effusion. ASSESSMENT AND PLAN: Brief episode of ventricular pause: I have reviewed the patient's EKG strips from G-tube placement,notee what appears to be a 5.4 second pause, ventricular pause, noted P waves, third-degree heart block with no ventricular escape rhythm. Electrocardiogram post procedure showing sinus rhythm with 1st degree AV block, with no other significant arrhythmias or pauses noted. Per IR staff she did not loose conscious during episode. She has been on continuous cardiac monitoring since procedure, which has shown 1 brief run of supraventricular tachycardia for 10 beats, but no other significant malignant arrhythmias or pauses. Echocardiogram showing normal left ventricular systolic function with normal ejection fraction, with normal age- appropriate valvular disease. Electrolytes and renal function within normal limits, magnesium low side of normal, TSH within normal limits. She is not on any AV katherin agents. At this time, I would recommend that the patient continue to be on cardiac monitoring, we will repeat 12-lead electrocardiogram in the morning. More than likely, due to what I was told by Dr Keller, this potentially could have been a vasovagal reaction due to extreme pain during the procedure. Her vital signs have been stable. We will re-evaluate a 12-lead electrocardiogram in a.m., and repeat laboratory studies. Will give her a one time supplement dose of magnesium sulfate IV (1 gm). Also, to assure no cardiac ischemia, I will cycle her troponins x3. If no significant pauses or arrhythmias noted during her hospitalization, consideration of placing her on a 30-day monitor as an outpatient. Thank you for this consultation. We will be glad to follow along with you. /[id number]/MODL MTDD
[2017-05-02 06:28] LABS: ANION GAP 13 mEq/L (8-16); CALCIUM 9.1 mg/dL (8.5-10.4); CARBON DIOXIDE 26 mEq/l (22-31); CHLORIDE 102 mEq/L (97-110); CREATININE 0.6 mg/dL (0.6-1.0); GLOMERULAR FILTRATION RATE > 60; GLUCOSE 136 mg/dL (70-100); MAGNESIUM 1.8 mg/dL (1.6-2.3); POTASSIUM 4.2 mEq/L (3.5-5.2); SODIUM 141 mEq/L (134-144)
[2017-05-02 06:40] LABS: TROPONIN I < 0.012 ng/mL (0-0.034)
--- NOTE | 2017-05-02 08:35 | SOAPPROG ---
SOAP Progress Note Assessment/Plan: Assessment: 67 yo F with a history of stroke and prior C-spine surgery who developed dysphagia following repeat C-spine surgery this admission. She failed a swallow study and a G-tube was requested and placed 1 day ago. Mid procedure, the patient experienced bradycardia and a brief run of asystole, with only p-waves on the rhythm strip, which lasted about 5 seconds. She remained awake and alert throughout this episode. Her heart rate recovered and remained stable for the remainder of the procedure. She is now on telemetry and being worked up by cardiology. Over the course of the day, she continued to complain of 8/10 abdominal pain, though she continued to sleep when not disturbed. Her abd remained soft and nondistended, though moderately tender to palpation in the LLQ. I recommended she undergo a CT scan of abdomen and pelvis last night to evaluate for free fluid, tube placement, etc. This demonstrated moderate free air, which is not unexpected so soon after tube placement, and a gastrostomy tube within the gastric lumen. According to her nurse, she was up and moving around overnight going to the restroom, and did continue to complain of significant abdominal pain, requiring approximately 3 mg dilaudid SR. STRATEGIC SOURCING MANAGER overnight. Her abd pain this morning was improved, now 6/10. Her abdominal exam remains benign, and she is no longer tender in the LLQ. Plan: NPO until noon. If exam is benign, can begin slow tube feeds. 05/02/17 08:34 05/02/17 08:39 05/02/17 09:13 Subjective: Pt up and moving overnight, going to the bathroom. Required 3 mg dilaudid SR. STRATEGIC SOURCING MANAGER. Pain this am is improved and she has needed only 0.2 mg dilaudid since 0500. She says her pain is improved, now 6/10. Objective: Vital Signs Temp Pulse Resp BP Pulse Ox 36.4 C 99 14 128/80 H 96 05/02/17 08:00 05/02/17 08:00 05/02/17 08:00 05/02/17 08:00 05/02/17 08:00 Laboratory Results 05/01/17 16:00 05/02/17 06:10 05/01/17 05/02/17 05/03/17 05:59 05:59 05:59 Intake Total 825 1129.2 900 Output Total 450 Balance 825 679.2 900 PT 13.9 SEC (12.0-15.0) 05/01/17 04:25 INR 1.08 (0.83-1.16) 05/01/17 04:25 Gen: Sleeping, easily able to wake, NAD Heart: RRR Lungs: Normal effort Abd: ND, soft, no rebound or guarding, appropriately TTP around gastrotomy tube site MSK: No CCE ICD10 Worksheet Patient Problems: Problems Problem Status Onset Fusion of spine of lumbar region Acute DVT (deep venous thrombosis) Acute Pulmonary embolism Acute
--- NOTE | 2017-05-02 08:54 | SOAPPROG ---
SOAP Progress Note Assessment/Plan: Assessment: Doing well this AM. Now on TELE unit due to brief asystole during her PEG yesterday which is felt to be a vasovagal issue most likely. Cardiology now following no new neuro issues Plan: Continue to monitor on Tele. Appreciated Cardiology input PT/OT as tolerated Continue Hard collar. Discussed with Dr. Cortez Subjective: lying in bed asleep, denies pain or new neuro changes States her PEG site feels "better" Objective: Vital Signs Temp Pulse Resp BP Pulse Ox 36.4 C 99 14 128/80 H 96 05/02/17 08:00 05/02/17 08:00 05/02/17 08:00 05/02/17 08:00 05/02/17 08:00 Laboratory Results 05/01/17 16:00 05/02/17 06:10 05/01/17 05/02/17 05/03/17 05:59 05:59 05:59 Intake Total 825 1129.2 900 Output Total 450 Balance 825 679.2 900 PT 13.9 SEC (12.0-15.0) 05/01/17 04:25 INR 1.08 (0.83-1.16) 05/01/17 04:25 NEURO: A+OX4 Sands, sens +LT Hard collar in place incisions x 2: CDI ICD10 Worksheet Patient Problems: Problems Problem Status Onset Fusion of spine of lumbar region Acute DVT (deep venous thrombosis) Acute Pulmonary embolism Acute
--- NOTE | 2017-05-02 08:55 | CPEKG ---
Heart Rate: 89 RR Interval: 674 P-R Interval: 220 QRSD Interval: 74 QT Interval: 380 QTC Interval: 463 P Quinault: 61 QRS Quinault: 36 T Wave Quinault: 48 EKG Severity - ABNORMAL ECG - EKG Impression: SINUS RHYTHM EKG Impression: FIRST DEGREE AV BLOCK Electronically Signed By: Wallace Pittman 02-May-2017 10:04:12
[2017-05-02] MEDS: SENNOSIDES/DOCUSATE SODIUM TAB PO SCH (09:02)
[2017-05-02] MEDS: metFORMIN HCL 500 MG TAB PO SCH ×3 (09:02→19:34)
[2017-05-02] MEDS: POLYETHYLENE GLYCOL 3350 17 GM PKT PO SCH ×3 (09:02→19:51)
[2017-05-02] MEDS: HYDROmorphONE/DILAUDID 6 MG/30 ML PCA IV PRN (11:19)
--- NOTE | 2017-05-02 14:57 | PDCARPN ---
Cardiology Progress Note Chief Complaint: Patient reports ongoing neck pain at surgical site. Assessment/Plan: Assessment: 67-year-old female with significant past history that includes CVA, DVT, PE, diabetes. Underwent cervical spine fusion by Dr. Pulido on April 24, found to have difficulty swallowing is comma with aspiration per swallow eval on April 29, G-tube placement yesterday afternoon, during procedure, 1 patient reportedly being in a great deal of pain and stress, noted to have a 5.4 episodes of complete heart block with no ventricular escape beats. No loss of consciousness, mild hypotensive with episode, with 20 mm systolic blood pressure drop comma placed in Trendelenburg and given IV fluids with improvement of symptoms. Placed on PCU for continuous cardiac monitoring. Echocardiogram done after procedure showing LV normal size and function, EF 60 65%, diastolic dysfunction, trace TR, normal RVSP. Laboratory studies showing normal electrolyte and renal function, no significant drop in H&H. Patient denies of any chest pain or pressure. Or symptoms suggesting of cardiac ischemia. troponins x3, normal TSH. Today, when reviewing continuous cardiac monitoring, it has been noted that she has had 2 brief episodes of 10-15 beats SVT, but no other malignant arrhythmias or pauses. 12 lead electrocardiogram done today showing sinus rhythm with first -degree AV block, no acute ST or T-wave abnormalities suggesting ischemia. Patient denies of chest pain or pressure. Vital signs have been stable. Plan: 1. Brief intermittent third-degree heart block with no ventricular escape: Episode happened during G-tube placement with when reporting we being in extreme pain, has had no further episodes over the last 24 hours. No signs of ischemia, negative troponins, normal in structure heart. Patient does have first-degree AV block on 12 lead electrocardiogram. Patient reports no history of near-syncope or syncopal events. Possibly due to a vasovagal reaction. Would recommend that she stays on continuous cardiac monitoring it for the rest of her hospitalization. Upon discharge, she should have a 30 day monitor and a follow-up visit with Cardiology post testing. We will sign off at this time, but is if necessary, please notify us. Please notify us the patient is close to discharge, so we may arrange for for her to get a 30 day monitor. Again thank you for this consultation. 05/02/17 14:43 Subjective: Patient denies of any chest pressure or pain, orthopnea, PND, lightheadedness, palpitations, near-syncope, or syncopal events. Reviewed/Discussed With: multidisciplinary team, other (Dr Vance) Objective: Vital Signs (8 Hrs) Temp Pulse Resp BP Pulse Ox 05/02/17 11:39 36.8 C 89 12 128/78 H 98 05/02/17 08:00 36.4 C 99 14 128/80 H 96 Intake/Output (24 Hrs) 05/01/17 05/02/17 05/03/17 05:59 05:59 05:59 Intake Total 825 1129.2 1400 Output Total 450 200 Balance 825 679.2 1200 Intake: Oral (ml) 0 0 500 IV Intake (ml) 1025 IV Infused (ml) 825 104.2 900 HYDROmorphone HCL See 4.2 Protocol IV PRN PRN Rx#: [id number] Magnesium Sulf 1 gm/ 100 Dextrose 100 ml @ 100 mls /hr IV ONCE ONE Rx#: [id number] Ns 1,000 ml @ 75 mls/hr 825 900 IV CONT ERAN Rx#: [id number] Output: Urine (ml) 450 200 Bedside Commode 450 200 Other: Number of Voids Bedside Commode 2 Toilet 1 Result Diagrams: 05/01/17 16:00 05/02/17 06:10 Cardiac Labs: Cardiac Lab Results (72 Hrs) 05/02/17 05/01/17 05/01/17 06:10 23:30 15:46 Troponin I < 0.012 < 0.012 < 0.012 - Physical Exam Constitutional: WDWN, no apparent distress Ears, Nose, Mouth, Throat: moist mucous membranes Cardiovascular: regular rate and rhythm, no murmurs, no rubs, no gallops, pulses symmetric bilat, No jugular vein distention Peripheral Pulses: 1+: dorsalis-pedis (R), dorsalis-pedis (L) Respiratory: other (Lungs are clear to auscultation but diminished in bases bilateral, no rhonchi, rales, or wheezing noted.) Gastrointestinal: normoactive bowel sounds, other (G tube dressing intact, no redness, swelling, or drainage.) Skin: no edema Neurologic: AAOx3 Psychiatric: cooperative, interactive, following commands ICD10 Worksheet Patient Problems: Problems Problem Status Onset Pulmonary embolism Acute DVT (deep venous thrombosis) Acute Fusion of spine of lumbar region Acute
[2017-05-02] MEDS: HYDROCOD/APAP 7.5/325 IN 15ML UDCUP TUBE PRN (16:28)
[2017-05-02] MEDS: SENNOSIDES 17.6 MG/10 ML UDL - IF LIQUID ORDERED PO SCH ×2 (16:38→19:45)
[2017-05-02] MEDS: LATANOPROST 0.005% 2.5 ML OPHT DROPS EACHEYE SCH (19:44)
[2017-05-02] MEDS: oxyCODONE IR 5 MG TAB PO PRN (21:10)
[2017-05-03] MEDS: HYDROCOD/APAP 7.5/325 IN 15ML UDCUP TUBE PRN ×4 (00:06→22:02)
[2017-05-03] MEDS: DIAZEPAM 5 MG TAB PO PRN ×2 (00:06→21:32)
[2017-05-03] MEDS: oxyCODONE IR 5 MG TAB PO PRN ×3 (04:57→20:22)
[2017-05-03] MEDS: metFORMIN HCL 500 MG TAB PO SCH ×2 (07:17→16:29)
[2017-05-03] MEDS: SENNOSIDES 17.6 MG/10 ML UDL - IF LIQUID ORDERED PO SCH ×2 (07:41→20:33)
[2017-05-03] MEDS: POLYETHYLENE GLYCOL 3350 17 GM PKT PO SCH ×3 (07:42→20:33)
--- NOTE | 2017-05-03 11:25 | NEUSURGPN ---
Date of Surgery: 04/24/17 Post Op Day: 9 Assessment/Plan: Assessment: 67 yr old s/p ACDF C3-4redo ACDF C5-6 and posterior fusion C3-6 Plan: Continue to monitor on Tele. Appreciated Cardiology input PT/OT as tolerated Continue with ST Patient will likely need rehab when discharged Continue Hard collar. Discussed with Dr. Diego Hernandez saw patient as well Subjective: Patient resting in bed Objective: NEURO: A+OX4 Sands, sens +LT Hard collar in place incisions x 2: CDI Neuro Check Frequency: per routine Urinary Catheter in Place: No Catheter Insertion Date: 04/24/17 - Physician Discussed Patient with DrKristi: Viktor Patient Seen by : David Neurosurgery Physical Exam - Vitals, I&O, Labs I and O 05/02/17 05/03/17 05/04/17 05:59 05:59 05:59 Intake Total 1129.2 2118 Output Total 450 950 Balance 679.2 1168 Intake: Oral (ml) 0 500 IV Intake (ml) 1025 IV Infused (ml) 104.2 1618 HYDROmorphone HCL See 4.2 Protocol IV PRN PRN Rx#: [id number] Magnesium Sulf 1 gm/ 100 Dextrose 100 ml @ 100 mls /hr IV ONCE ONE Rx#: [id number] Ns 1,000 ml @ 75 mls/hr 1618 IV CONT ERAN Rx#: [id number] Output: Urine (ml) 450 950 Bedside Commode 450 950 Other: Number of Voids Bedside Commode 2 Vital Signs Temp Pulse Resp BP Pulse Ox 36.4 C 98 17 114/76 98 05/03/17 08:00 05/03/17 08:00 05/03/17 08:00 05/03/17 08:00 05/03/17 08:00 Laboratory Results 05/01/17 16:00 05/02/17 06:10 ICD10 Worksheet Patient Problems: Problems Problem Status Onset Fusion of spine of lumbar region Acute DVT (deep venous thrombosis) Acute Pulmonary embolism Acute
[2017-05-03] MEDS ORDERED: fentaNYL 50 MCG PATCH TD SCH (12:30)
[2017-05-03] MEDS: LATANOPROST 0.005% 2.5 ML OPHT DROPS EACHEYE SCH (21:40)
[2017-05-04] MEDS: HYDROCOD/APAP 7.5/325 IN 15ML UDCUP TUBE PRN ×3 (01:09→10:45)
[2017-05-04] MEDS: oxyCODONE IR 5 MG TAB PO PRN (05:07)
[2017-05-04 05:42] VITALS: TEMP 97.7
--- NOTE | 2017-05-04 06:31 | NEUSURGPN ---
Date of Surgery: 04/24/17 Post Op Day: 10 Assessment/Plan: Assessment: 67 yr old s/p ACDF C3-4 with redo ACDF C5-6 and posterior fusion C3- 6 POD #10 Plan: -Continue to monitor on Tele until dc to rehab today -appreciated Cardiology input and care-they will arrange an outpt Holter- cardiology has signed off -PT/OT as tolerated -Continue with ST -continue with PEG -Patient will likely need rehab-plan for dc to [facility] today once accepted -continue Hard collar -discussed with V -call with any questions or concerns -pt understands and agrees with dc Subjective: Awake and alert. Pt with continued swallowing issues. No alfred/cp/sob/abd or gu complaints. No f/c/n/v/d. Objective: A+OX4 BRODY, sens +LT Hard collar in place incisions x 2: CDI Neuro Check Frequency: per routine Urinary Catheter in Place: No Catheter Insertion Date: 04/24/17 - Physician Discussed Patient with DrKristi: Viktor Neurosurgery Physical Exam - Vitals, I&O, Labs I and O 05/03/17 05/04/17 05/05/17 05:59 05:59 05:59 Intake Total 2118 Output Total 950 800 Balance 1168 -800 Intake: Oral (ml) 500 IV Infused (ml) 1618 Ns 1,000 ml @ 75 mls/hr 1618 IV CONT ERAN Rx#: [id number] Output: Urine (ml) 950 800 Bedside Commode 950 400 Toilet 400 Other: Number of Voids Bedside Commode 1 Toilet 2 Number of Stools Toilet 1 Vital Signs Temp Pulse Resp BP Pulse Ox 36.5 C 79 12 95/66 L 98 05/04/17 04:00 05/04/17 04:00 05/04/17 04:00 05/04/17 04:00 05/04/17 04:00 Laboratory Results 05/01/17 16:00 05/02/17 06:10 ICD10 Worksheet Patient Problems: Problems Problem Status Onset Fusion of spine of lumbar region Acute DVT (deep venous thrombosis) Acute Pulmonary embolism Acute
--- NOTE | 2017-05-04 06:41 | PDIAF ---
- Diagnosis Diagnosis: s/p anterior/posterior fusion Code Status: Full Code - Medication Management Discharge Medications: Medications to Continue on Transfer Cyclobenzaprine [Flexeril 10 MG (*)] 10 mg PO HS 04/07/17 [Last Taken 04/23/17] metFORMIN HCL [Glucophage 500 mg (*)] 500 mg PO BIDMEAL 04/07/17 [Last Taken 09:00] Latanoprost 0.005% [Xalatan 0.005% (*)] 1 drops EACHEYE HS 04/24/17 [Last Taken 04/23/17] Ranitidine HCl [Zantac] 300 mg PO DAILY PRN 04/24/17 [Last Taken 04/24/17 06:00] Diazepam [Valium 5 MG (*)] 5 mg PO Q6 PRN #30 tab 05/04/17 [Last Taken Unknown] Enoxaparin [Lovenox 40 MG (*)] 40 mg SC DAILY #10 syr 05/04/17 [Last Taken Unknown] Hydrocod/APAP 7.5/325 in 15Ml [Hycet Oral Liquid (*) 7.5MG-325MG/15ML] 15 - 30 ml TUBE Q6 PRN #8 udcup 05/04/17 [Last Taken Unknown] Methocarbamol [Robaxin 750 mg (*)] 750 mg PO QID PRN #60 tab 05/04/17 [Last Taken Unknown] fentaNYL [Duragesic 50 MCG Patch (*)] 50 mcg TD Q72H #7 patch 05/04/17 [Last Taken Unknown] oxyCODONE IR [Oxycodone Ir (*)] 5 - 10 mg PO Q4HRS PRN #90 tab 05/04/17 [Last Taken Unknown] Shelter Antibiotics: none Discharge Medications: Refer to the Discharge Home Medication list for PRN reason. - Orders Services needed: Registered Nurse, Certified Compound Mixer, Master Crystal Finisher , Physical Therapy, Occupational Therapy, Speech Language Pathologist Oxygen: to keep O2 sat above 90% Diet Recommendation: other (per speech therapy) Diet Texture: Ice Chips, Oral Feeding with Speech Pathologist Only, Meds Crushed in Puree Wound Care Instructions: leave steri strips on until 14-17 days post op then able to remove - Follow Up Care Current Providers and Referrals: JOLEEN TAMEZ [Primary Care Provider] - Wallace Pittman MD [Medical Doctor] - Gagan Hoang MD [Medical Doctor] - (follow up in 2-3 weeks)
[2017-05-04 08:36] VITALS: BP 106/70; PULSE 98; RESP 16; O2SAT 92
[2017-05-04] MEDS: POLYETHYLENE GLYCOL 3350 17 GM PKT PO SCH (09:10)
[2017-05-04] MEDS: metFORMIN HCL 500 MG TAB PO SCH (09:10)
[2017-05-04] MEDS: SENNOSIDES 17.6 MG/10 ML UDL - IF LIQUID ORDERED PO SCH (09:10)
== END 2017-05-04 10:55 | DRG 454 ==
LOC: F3N 09:19 → F2N 16:41 → F3N 04-30 17:14 → F2W 05-01 11:44
PROVIDERS: ADMIT Neurological Surgery; ATTEND Neurological Surgery
PROC: 0RG20A0 Fusion of 2 or more Cervical Vertebral Joints with Interbody Fusion Device, Anterior Approach, Anterior Column, Open Approach (ICD-10-PCS; principal; 2017-04-24 11:45)
PROC: 0RG2071 Fusion of 2 or more Cervical Vertebral Joints with Autologous Tissue Substitute, Posterior Approach, Posterior Column, Open Approach (ICD-10-PCS; principal; 2017-04-24 11:45)
PROC: 3E0V0GB Introduction of Recombinant Bone Morphogenetic Protein into Bones, Open Approach (ICD-10-PCS; principal; 2017-04-24 11:45)
PROC: 00NW0ZZ Release Cervical Spinal Cord, Open Approach (ICD-10-PCS; principal; 2017-04-24 11:45)
PROC: 0PP304Z Removal of Internal Fixation Device from Cervical Vertebra, Open Approach (ICD-10-PCS; principal; 2017-04-24 11:45)
PROC: 0RT30ZZ Resection of Cervical Vertebral Disc, Open Approach (ICD-10-PCS; principal; 2017-04-24 11:45)
PROC: 0DH63UZ Insertion of Feeding Device into Stomach, Percutaneous Approach (ICD-10-PCS; 2017-05-01)
DX: M96.0 Pseudarthrosis after fusion or arthrodesis (principal); M47.12 Other spondylosis with myelopathy, cervical region; M48.02 Spinal stenosis, cervical region; I69.354 Hemiplegia and hemiparesis following cerebral infarction affecting left non-dominant side; I69.391 Dysphagia following cerebral infarction; R13.12 Dysphagia, oropharyngeal phase; I44.2 Atrioventricular block, complete; R55 Syncope and collapse; E11.9 Type 2 diabetes mellitus without complications; Z86.711 Personal history of pulmonary embolism; Z86.718 Personal history of other venous thrombosis and embolism; Z87.891 Personal history of nicotine dependence; Z85.040 Personal history of malignant carcinoid tumor of rectum
CPT/HCPCS: 92526-GN; 92610-GN; 92611-GN; 97110-GP; 97116-GP; 97162-GP; 97166-GO; 97530-GO; 97530-GP; 97535-GO; C1713; C1762; C1769; G8978-GP-CK; G8979-GP-CJ; G8987-GO-CL; G8988-GO-CI; G8996-GN-CI; G8996-GN-CK; G8997-GN-CI; G8997-GN-CK; G8998-GN-CK; J0461; J0690; J1170; J1610; J1650; J2250; J2370; J2405; J2704; J3010; J3475; Q9967

== ENCOUNTER 2017-05-04 11:46 | Inpatient (IN) | payer OTHER ==
[2017-05-04] MEDS ORDERED: NON-FORMULARY NEW DRUG (Ranitidine Hcl [Zantac] 300 MG) TUBE PRN (13:31)
[2017-05-04] MEDS ORDERED: fentaNYL 50 MCG PATCH TD SCH (13:45)
[2017-05-04] MEDS ORDERED: BISACODYL 10 MG SUPP PR PRN (14:20)
[2017-05-04] MEDS: oxyCODONE IR 5 MG TAB TUBE PRN ×2 (14:38→21:43)
[2017-05-04] MEDS: buPROPion 75 MG TAB TUBE SCH (14:38)
--- NOTE | 2017-05-04 15:21 | GHP ---
[f rep st] HISTORY AND PHYSICAL POST ADMISSION PHYSICIAN EVALUATION AND REHABILITATION TREATMENT PLAN DATE OF ADMISSION: 05/04/2017 DATE OF EVALUATION: 05/04/2017. TIME OF EVALUATION: 1330. REFERRING FACILITY: [facility]. IMPAIRMENT GROUP: [id number]. DATE OF ONSET: 04/24/2017. REFERRING PHYSICIAN: Dr. Hoang. CONSULTING PHYSICIANS: There was consultation with Cardiology, Leonard Boyd , Nurse Practitioner and Cristhian Vance MD. REHABLITATION DIAGNOSIS: Debility and dysphagia following cervical spine surgery. ETIOLOGIC DIAGNOSIS: Other orthopedic. DATE OF SURGERY: 04/24/2017. HISTORY OF PRESENT ILLNESS: This patient was admitted to [facility] for a revision of a prior C5-6 anterior cervical decompression and fusion and for a C3-4 anterior cervical decompression and fusion with posterior fusion and decompression of the spinal cord. She had developed intractable pain due to spinal stenosis, spinal cord compression, and cervical spondylitic myelopathy. Her postoperative course was complicated by [id number] dysphagia, and a PEG tube was placed for nutrition and hydration. She had considerable pain and was on hydromorphone by patient- controlled analgesia which was subsequently converted to oral medications. Additionally, she had a fentanyl patch. The PEG tube was placed on 05/01/2017. During placement of the PEG tube, she had a 5.4-second asystole. She had subsequent telemonitoring with no further dysrhythmias. There was a cardiology consult. An echocardiogram was done which showed normal left ventricular ejection fraction at 65%, Doppler evidence for diastolic dysfunction, trace tricuspid regurgitation, normal right ventricular systolic pressure, and otherwise normal valvular function. EKG showed sinus rhythm with first-degree AV block. Magnesium was replenished as it was on the low end of normal. Other labs including TSH were normal, and she was ruled out for myocardial ischemia. Recommendation was made for a 30-day heart monitor as an outpatient. She has had neck pain including left-sided neck pain with radiation into the shoulder. She has chronic back pain which has been unchanged, and she has pain at the PEG site. She is otherwise without acute complaints. OTHER STUDIES AND LABS DURING HOSPITALIZATION: Hemoglobin and hematocrit on were 11.2 and 34.7. Postsurgical her hemoglobin was 12.1 and 37 on . Coagulation studies were normal. Serum chemistry on 05/02/2017 showed an elevated glucose at 136. Otherwise, renal function, electrolytes, and magnesium were normal. Troponins were negative. On 05/01/2017, she had a slightly low albumin at 3.2. TSH was 1.34. An abdominal CT scan was done to verify placement of the PEG tube. It showed bibasilar dependent atelectasis in the lower thorax. She had pancreatic head calcification and atrophy of the pancreatic body and tail. Gastrostomy tube placement was verified in the gastric lumen. There was moderate free air, and there were multilevel degenerative changes of the spine and advanced lower lumbar facet arthrosis seen including grade 1 anterolisthesis and 0.9 cm leftward listhesis of L4 relative to L5. PRECAUTIONS: She is a fall risk. She has aspiration precautions. She has orthopedic precautions for the cervical neck, and she is to wear a hard collar at all times though she may remove it to shower. ACTIVE COMORBIDITIES: She has the tier 2 comorbidity of dysphagia. She otherwise has no active tier 1, tier 2, or tier 3 comorbidities. PAST MEDICAL HISTORY: 1. 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 2. Dysphagia and hoarseness due to the CVA. 3. Deep venous thrombosis in the left foot in 2013. 4. Pulmonary embolus. 5. Diabetes mellitus type 2. 6. Rectal carcinoid. 7. Left hip fracture. PAST SURGICAL HISTORY: Prior C4 through C6 ACDF in 2008, IVC filter placement, rectal carcinoid tumor surgery, ORIF of left hip fracture. PRE-HOSPITAL MEDICATIONS: I do not have a complete list, but per review of records, she was most likely taking metformin 500 mg p.o. b.i.d., latanoprost 0.005% one drop each eye at h.s., and possibly opiate pain medications. ADMISSION MEDICATIONS: 1. Cyclobenzaprine 10 mg per tube q.h.s. 2. Metformin 500 mg per tube b.i.d. 3. Latanoprost 0.005% one drop each eye q.h.s. 4. Ranitidine 300 mg per tube daily p.r.n. 5. Diazepam 5 mg per tube q.6 hours p.r.n. 6. Enoxaparin 40 mg subcutaneous daily. 7. Hydrocodone/acetaminophen 7.5/325 per tube daily. 8. Methocarbamol 750 mg per tube 4 times daily p.r.n. 9. Fentanyl 50 mcg transdermal patch q.72 hours. 10. Oxycodone immediate release 5-10 mg per tube q.4 hours p.r.n. ALLERGIES: Listed to latex, bacitracin, neomycin, penicillins, and polymyxin B. FAMILY HISTORY: Noncontributory. PSYCHOSOCIAL HISTORY: She is and her first . She has remarried. She had 1 son who also has . 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 She is a former smoker, but does not currently smoke. She reports that her first had considerable disability due to [employer] exposure and amputations and that her home is adapted for handicapped access. REVIEW OF SYSTEMS: She reports pain as in HPI. She has an occasional cough and brings up some phlegm. She has no dyspnea. She reports she was not using oxygen prior to her surgery. She does not feel thirsty. She has mild left- sided weakness as a residual of her prior cerebrovascular accident and reports she was able to ambulate previously with a cane. She denies nausea, vomiting, constipation, or diarrhea. She denies dysuria or urinary frequency. She denies skin rash or skin breakdown. She denies joint swelling or joint pain. She reports that she feels depressed, but she is not hopeless. She is hoping to be able to progress in rehabilitation and return home. PHYSICAL EXAM: VITAL SIGNS: Blood pressure is 117/81, heart rate is 100, respiratory rate is 14, oxygen saturation is 91% on 3 L, temperature is 36.9 degrees centigrade. Her weight is 72.3 kg for a body mass index of 24.6. GENERAL: This is a chronically ill-appearing woman, appears older than her chronologic age. Cooperative and in no acute distress, with a flat affect. HEENT: Extraocular movements are intact. Pupils are equal, round, and reactive to light. Mucous membranes are moist. Dentition is in good condition. NECK: Immobilized in a hard cervical collar. HEART: There is a regular rate and rhythm with no murmurs, rubs, or gallops. LUNGS: Clear to auscultation bilaterally. ABDOMEN: Soft, nondistended with normoactive bowel sounds and no hepatosplenomegaly. There is tenderness at the PEG site. There is no erythema or purulence at the PEG site. EXTREMITIES: There is no cyanosis , clubbing, or edema. Radial and dorsalis pedis pulses are 2+ bilaterally. NEUROLOGIC: She is alert and oriented x3. She has a flat affect. Cranial nerves 2-12 are grossly intact. She has mild weakness on the left, with shoulder shrug, biceps, triceps, and hand blasting machine operator 4+/5. Her left hip flexor is 2/ 5. Her left quadriceps is 4/5. Her left plantar fact flexion is 3/5. Otherwise, motor function is 5/5 overall. Sensation is intact to light touch. Deep tendon reflexes are 2+ bilaterally at the biceps, Achilles tendons, and left patella but absent at the right patella tendon. SKIN: Warm and dry with no decubitus ulcers. PSYCHIATRIC: She has flat affect. She admits to sadness. She does not sleep well, having difficulty both attaining and maintaining sleep. CURRENT LEVEL OF FUNCTION: Per the pre-admission screen. Regarding diet, feeding, and swallowing, she was n.p.o. and fed by PEG tube. There was moderate -to-severe dysphagia seen on the video fluoroscopic swallow study. Grooming was accomplished with standby assist, dressing with standby assist for socks, toileting with standby assist for clothing management. Regarding bladder and bowel, she was continent. Regarding bed mobility, she was able to bring her lower extremities to the edge of the bed with the head of the bed elevated. Transfers were accomplished with minimal assistance with voice cuing. She had decreased postural extension but no loss of balance. She used a 4-wheeled walker. Endurance was fair. Gait required contact guard for 40 feet with contact guard to minimal assistance using a 4-wheeled walker on 2 L of oxygen. Distance was limited by pain. She was noted to have a decreased antwan and step length and a poor step height. She was noted to have impaired coordination. IMPRESSION: This patient is a 67-year-old woman who underwent elective cervical spine surgery for a redo of C5-6 anterior cervical diskectomy and fusion and additionally a C3-4 ACDF. Hospital stay was complicated by dysphagia , pain, asystole during the placement of a PEG tube, and functional debility. She was participating in physical, occupational, and speech therapies and was appropriate for inpatient rehabilitation. Her goal is to complete a rehabilitation stay and go home with supportive services. For a safe discharge, it is expected that she will achieve independence with grooming and bed mobility, and modified independence for transfers and ambulation with the least restrictive device. She may require supervision for bathing and dressing. She likely will require assistance for shopping and household management. She will advance to the least restrictive diet but may continue to require supplemental tube feeding. She will have therapy with physical therapy, occupational therapy, and speech therapy for 60 minutes per day for each discipline on 5-7 days per week. Her expected duration of stay is 10-14 days. It is anticipated that, upon discharge, she will continue to benefit from home health services including nursing, speech therapy, nurse's aide, social work, occupational therapy, and physical therapy. ASSESSMENT AND PLAN: 1. Debility status post cervical spine surgery with revision of anterior cervical diskectomy and fusion C3-C4 and ACDF C5-C6 0n 04/24/17. PT and OT to optimize mobility and activities of daily living. 2. Dysphagia status post cervical spine surgery. Feeding by PEG tube and evaluation and treatment by Speech and Language Pathology. 3. History of cerebrovascular accident approximately 2 years ago. It is unclear whether she is on any medications for secondary prevention. She has not been hypertensive during her stay. She is currently on enoxaparin. There will be further discussion regarding whether she was on antiplatelet agents or lipid-lowering therapy. 4. Pain management. Continue fentanyl transdermal at 50 mcg/hour, changing q.72 hours. Continue hydromorphone/acetaminophen combination medication as well as oxycodone immediate release. Medications will be adjusted to achieve sufficient pain management for sleep and to participate in therapies. 5. Hypoxia, multifactorial, with diastolic dysfunction on echocardiogram, history of smoking, history of pulmonary embolus, and bilateral lower lobe atelectasis on abdominal CT. Anemia may contribute. Incentive spirometry. Follow blood counts. No signs or symptoms of pneumonia or pulmonary embolus. 6. Depression. Discussed options. She reports she was excessively somnolent when treated with fluoxetine in the past, so will not initiate SSRIs or SNRIs. Trial of bupropion starting at a small dose 75 mg at 8 in the morning and 1400. This will be titrated as tolerated, and she will have evaluation by social studies teacher for non-pharmacologic interventions. 8. History of deep venous thrombosis and pulmonary embolus. She is on enoxaparin as ordered out of the hospital, which will be continued. There will be further discussion regarding whether she was on anticoagulants in the past. 8. Insomnia. This may improve with treatment of depression. We will also initiate melatonin 3 mg p.o. q.h.s. in order to regulate her sleep-wake cycle. 9. Diabetes mellitus type 2. Continue metformin. We will check a hemoglobin A1c. 10. History of fall and hip fracture, query osteoporosis. We will check a vitamin D level. 11. Question of muscle spasm. She is prescribed on hospital discharge cyclobenzaprine, methocarbamol as well as diazepam. We will discontinue methocarbamol and will monitor for need for antispasmodics. We will discontinue if she shows no benefit. Wound Care Instructions: leave steri strips on until 14-17 days post op then able to remove (05/08 - 05/16/17) Follow-up after discharge: JOLEEN TAMEZ [Primary Care Provider] Wallace Pittman MD [Cardiology] Gagan Hoang MD [Neurosurgery] /[id number]/MODL MTDD
[2017-05-04] MEDS: HYDROCOD/APAP 7.5/325 IN 15ML UDCUP TUBE PRN (18:24)
[2017-05-04] MEDS: metFORMIN HCL 500 MG TAB TUBE SCH (18:24)
[2017-05-04] MEDS: CYCLOBENZAPRINE 10 MG TAB TUBE SCH (20:38)
[2017-05-04] MEDS: MELATONIN 3 MG TAB PO SCH (20:38)
[2017-05-04] MEDS: LATANOPROST 0.005% 2.5 ML OPHT DROPS EACHEYE SCH (20:40)
[2017-05-04] MEDS: FAMOTIDINE 20 MG TAB TUBE PRN (21:40)
[2017-05-05] MEDS: HYDROCOD/APAP 7.5/325 IN 15ML UDCUP TUBE PRN ×2 (03:04→17:18)
[2017-05-05] MEDS: metFORMIN HCL 500 MG TAB TUBE SCH ×2 (08:11→17:19)
[2017-05-05] MEDS: ENOXAPARIN 40 MG/0.4 ML SYR SC SCH (08:11)
[2017-05-05] MEDS: buPROPion 75 MG TAB TUBE SCH ×2 (08:11→13:29)
[2017-05-05] MEDS: oxyCODONE IR 5 MG TAB TUBE PRN ×3 (08:12→21:12)
[2017-05-05 08:48] LABS: % IMMATURE GRANULYOCYTES 0.4 % (0.0-1.1); ABSOLUTE IMMATURE GRANULOCYTES 0.02 10^3/uL (0.00-0.10); ADD DIFF? NO; ADD MORPH? NO; ADD SCAN? NO; ATYPICAL LYMPHOCYTE FLAG 30 (0-99); FRAGMENT RBC FLAG 0 (0-99); HEMATOCRIT 32.2 % (38.0-47.0); HEMOGLOBIN 10.2 g/dL (12.6-16.3); LEFT SHIFT FLG 0 (0-99); LIPEMIA HEMOLYSIS FLAG 80 (0-99); MEAN CELL HEMOGLOBIN 30.4 pg (27.9-34.1); MEAN CELL HEMOGLOBIN CONCENTR. 31.7 g/dL (32.4-36.7); MEAN CELL VOLUME 96.1 fL (81.5-99.8); MEAN PLATELET VOLUME 10.2 fL (8.7-11.7); PLATELET CLUMPS FLAG 0 (0-99); PLATELET COUNT 209 10^3/uL (150-400); RED BLOOD CELL COUNT 3.35 10^6/uL (4.18-5.33); RED CELL DISTRIBUTION WIDTH 11.9 % (11.5-15.2)
[2017-05-05 09:35] LABS: ANION GAP 9 mEq/L (8-16); CALCIUM 9.2 mg/dL (8.5-10.4); CARBON DIOXIDE 32 mEq/l (22-31); CHLORIDE 99 mEq/L (97-110); CREATININE 0.6 mg/dL (0.6-1.0); GLOMERULAR FILTRATION RATE > 60; GLUCOSE 124 mg/dL (70-100); POTASSIUM 4.4 mEq/L (3.5-5.2); SODIUM 140 mEq/L (134-144)
--- NOTE | 2017-05-05 09:39 | SOAPPROG ---
SOAP Progress Note Assessment/Plan: Assessment: 67 yo F s/p revision of anterior cervical diskectomy and fusion C3-C4, and ACDF C5-C6 0n 04/24/17, with h/o CVA 2014 and residual L weakness: * Debility status post cervical spine surgery. Initial FIM 64 on 04/28/17. SBA/ S bed mobility. Walked 75' FWW. Toilet T'doreen CGA, toileting S; needs assist for tubes and lines.UB dressing S except min A for cervical collar; min A for LB dressing. Otherwise set-up/S for ADLs. Continue PT and OT to optimize mobility and activities of daily living. * Dysphagia status post cervical spine surgery. Feeding by PEG tube. Has edema form surgery interfering with epiglottic inversion for swallowing. RN PATIENT SERVICES attempting to advance to water protocol. Continue treatment by Speech and Language Pathology. * F/E/N. Plan to change to bolus feeding from continuous, and to change to formula with more fiber due to loose stools. Continue management per dietitian. * Pain management. Continue fentanyl transdermal at 50 mcg/hour, changing q.72 hours. Continue hydromorphone/acetaminophen combination medication as well as oxycodone immediate release. PRN meds have been approximately equal to 12.5 mcg /hr fentanyl. She only needs PRNs at night, and at present prefers to not increase fentanyl. * Hypoxia, multifactorial, with diastolic dysfunction on echocardiogram, history of smoking, and bilateral lower lobe atelectasis on abdominal CT. Anemia may contribute. Incentive spirometry. Follow blood counts. No signs or symptoms of pneumonia or pulmonary embolus. * Depression. Discussed options. She reports she was excessively somnolent when treated with fluoxetine in the past, so will not initiate SSRIs or SNRIs. Trial of bupropion starting at a small dose 75 mg at 8 in the morning and 1400. This will be titrated as tolerated, and she will have evaluation by bilingual social worker for non-pharmacologic interventions. * History of deep venous thrombosis and pulmonary embolus. She is on enoxaparin as ordered out of the hospital, which will be continued. * Insomnia. This may improve with treatment of depression. Initiated melatonin 3 mg p.o. q.h.s. in order to regulate her sleep-wake cycle. * Question of muscle spasm. She is prescribed on hospital discharge cyclobenzaprine, methocarbamol as well as diazepam. We will discontinue methocarbamol and will monitor for need for antispasmodics. We will discontinue if she shows no benefit. Chronic/stable conditions: * History of cerebrovascular accident approximately 2 years ago. She reports that she was not placed on aspirin or statin per Neurologist Dr. Dai. Stroke was treated at [facility]. * Osteoporosis with h/o hip fracture. D/W Jesus Chavira, Neurosurgery PA: no contraindication to alendronate. D/W pharmacy: no longer on formulary; hospital policy is to restart after discharge. D/W patient regarding possibility of injectable zoledronic acid if it seems her prognosis for recovering swallowing is weeks to months. * Diabetes mellitus type 2. Hemoglobin A1c 6.7 on 05/05/17. No indication to increase metformin. Wound Care Instructions: leave steri strips on until 14-17 days post op then able to remove (05/08 - 05/16/17) Attended staffing, 15 minutes. Discussed with case management, nursing, dietitian, PT, OT, RN PATIENT SERVICES. 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 Set discharge goal of 2016. Follow-up after discharge: JOLEEN TAMEZ [Primary Care Provider] Wallace Pittman MD [Cardiology] Gagan Hoang MD [Neurosurgery] 05/05/17 13:03 Subjective: Was up at night at approximately 3:00 a.m. for pain medication. Also had pain medication at bedtime and upon arising in the morning otherwise slept well and was able to get back to sleep after being awake for pain medication. Denies cough or dyspnea, denies fevers or chills. Has some discomfort at the PEG site. Objective: Vital Signs Temp Pulse Resp BP Pulse Ox 36.6 C 77 16 98/64 L 97 05/05/17 06:44 05/05/17 06:44 05/05/17 06:44 05/05/17 06:44 05/05/17 06:44 Laboratory Results 05/05/17 06:10 05/04/17 05/05/17 05/06/17 05:59 05:59 05:59 Intake Total 2020 Output Total 950 100 Balance 1070 -100 - Time Spent With Patient Time Spent With Patient: Greater than 35 minutes 4 times a day, including more than 50% of time in coordination of care during staffing meeting, and counseling patient. Physical Exam - Physical Exam General Appearance: WD/WN, alert, no apparent distress Respiratory: normal breath sounds, decreased breath sounds, No crackles, No rhonchi, No wheezing Cardiac/Chest: regular rate, rhythm, No diastolic murmur, No systolic murmur Skin: normal color, warm/dry Neuro/Psych: alert, normal mood/affect, oriented x 3 ICD10 Worksheet Patient Problems: Problems Problem Status Onset DVT (deep venous thrombosis) Acute Fusion of spine of lumbar region Acute Pulmonary embolism Acute
[2017-05-05 09:52] LABS: VITAMIN D 25-HYDROXY TOTAL 19.5 ng/mL (30-100)
[2017-05-05 10:45] LABS: HEMOGLOBIN A1C 6.7 % (4.0-6.0)
--- NOTE | 2017-05-05 12:53 | PDOREHIP ---
Admission [facility] - Admission - 3 Day Assessment Period Admission Date/Day 1: 05/04/17 Day 2: 05/05/17 Day 3: 05/06/17 - Active Diagnoses Comorbidities and Co-existing Conditions at Admission: 76161. None of the Above - Skin Conditions Unhealed Pressure Ulcer (1 or more/Stage 1 or >)-Admission: 0. No
[2017-05-05] MEDS: CHOLECALCIFEROL VIT D3 2,000 UNITS TAB/CAP PO SCH (13:29)
[2017-05-05] MEDS: FAMOTIDINE 20 MG TAB TUBE PRN (17:19)
[2017-05-05] MEDS: MELATONIN 3 MG TAB PO SCH (21:14)
[2017-05-05] MEDS: CYCLOBENZAPRINE 10 MG TAB TUBE SCH (21:14)
[2017-05-05] MEDS: LATANOPROST 0.005% 2.5 ML OPHT DROPS EACHEYE SCH (21:17)
[2017-05-06] MEDS: HYDROCOD/APAP 7.5/325 IN 15ML UDCUP TUBE PRN ×4 (00:42→20:42)
[2017-05-06] MEDS: oxyCODONE IR 5 MG TAB TUBE PRN ×3 (06:16→18:44)
[2017-05-06] MEDS: buPROPion 75 MG TAB TUBE SCH ×2 (08:15→14:12)
[2017-05-06] MEDS: ENOXAPARIN 40 MG/0.4 ML SYR SC SCH (08:15)
[2017-05-06] MEDS: fentaNYL 50 MCG PATCH TD SCH (08:15)
[2017-05-06] MEDS: metFORMIN HCL 500 MG TAB TUBE SCH ×2 (08:15→17:57)
[2017-05-06] MEDS: CHOLECALCIFEROL VIT D3 2,000 UNITS TAB/CAP PO SCH (08:15)
[2017-05-06] MEDS ORDERED: buPROPion 75 MG TAB TUBE SCH (16:32)
--- NOTE | 2017-05-06 16:34 | SOAPPROG ---
SOAP Progress Note Assessment/Plan: Assessment: 67 yo F s/p revision of anterior cervical diskectomy and fusion C3-C4, and ACDF C5-C6 0n 04/24/17, with h/o CVA 2014 and residual L weakness: * Debility status post cervical spine surgery. Initial FIM 64 on 04/28/17. SBA/ S bed mobility. Walked 75' FWW. Toilet T'doreen CGA, toileting S; needs assist for tubes and lines.UB dressing S except min A for cervical collar; min A for LB dressing. Otherwise set-up/S for ADLs. Continue PT and OT to optimize mobility and activities of daily living. * Dysphagia status post cervical spine surgery. Feeding by PEG tube. Has edema form surgery interfering with epiglottic inversion for swallowing. 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 Continue treatment by Speech and Language Pathology. * F/E/N. Plan to change to bolus feeding from continuous, and to change to formula with more fiber due to loose stools. Continue management per dietitian. * Diarrhea. Unusual with large opiate doses. Check stool for C. difficile if it does not resolve with formula change. * Pain management. Continue fentanyl transdermal at 50 mcg/hour, changing q.72 hours. Continue hydromorphone/acetaminophen combination medication as well as oxycodone immediate release. PRN meds have been approximately equal to 12.5 mcg /hr fentanyl. She only needs PRNs at night, and at present prefers to not increase fentanyl. * Hypoxia, multifactorial, with diastolic dysfunction on echocardiogram, history of smoking, and bilateral lower lobe atelectasis on abdominal CT. Anemia may contribute. Incentive spirometry. Follow blood counts. No signs or symptoms of pneumonia or pulmonary embolus. * Depression. Discussed options. She reports she was excessively somnolent when treated with fluoxetine in the past, so will not initiate SSRIs or SNRIs. Trial of bupropion starting 05/04/17 at a small dose 75 mg at 8 in the morning and 1400. Tolerating well; increase dose to 100 mg starting 05/07/17. Evaluation by social services coordinator for non-pharmacologic interventions. * History of deep venous thrombosis and pulmonary embolus. She is on enoxaparin as ordered out of the hospital, which will be continued. * Insomnia. This may improve with treatment of depression. Initiated melatonin 3 mg p.o. q.h.s. in order to regulate her sleep-wake cycle. * Question of muscle spasm. She is prescribed on hospital discharge cyclobenzaprine, methocarbamol as well as diazepam. We will discontinue methocarbamol and will monitor for need for antispasmodics. We will discontinue if she shows no benefit. Chronic/stable conditions: * History of cerebrovascular accident approximately 2 years ago. She reports that she was not placed on aspirin or statin per Neurologist Dr. Dai. Stroke was treated at [facility]. * Osteoporosis with h/o hip fracture. D/W Jesus Chavira, Neurosurgery PA: no contraindication to alendronate. D/W pharmacy: no longer on formulary; hospital policy is to restart after discharge. D/W patient regarding possibility of injectable zoledronic acid if it seems her prognosis for recovering swallowing is weeks to months. * Diabetes mellitus type 2. Hemoglobin A1c 6.7 on 05/05/17. No indication to increase metformin. Wound Care Instructions: leave steri strips on until 14-17 days post op then able to remove (05/08 - 05/16/17) House is ADA compliant as she cared for her there who is chronically ill and subsequently . Set discharge goal of 05/16/2017. Follow-up after discharge: JOLEEN TAMEZ [Primary Care Provider] Wallace Pittman MD [Cardiology] Gagan Hoang MD [Neurosurgery] 05/06/17 16:29 Subjective: Still with low back pain and discomfort at the PEG site. Also reports diarrhea last night and the night before at about 230 in the morning. It awoke her from sleep. Denies fevers, chills, cough, dyspnea. Objective: Vital Signs Temp Pulse Resp BP Pulse Ox 36.4 C 75 18 101/58 L 92 05/06/17 06:00 05/06/17 08:15 05/06/17 11:11 05/06/17 08:15 05/06/17 11:55 Laboratory Results 05/05/17 06:10 05/05/17 06:10 05/05/17 05/06/17 05/07/17 05:59 05:59 05:59 Intake Total 2020 2200 1208 Output Total 950 1225 800 Balance 1070 975 408 Physical Exam - Physical Exam General Appearance: WD/WN, alert, no apparent distress Respiratory: normal breath sounds, No crackles, No rhonchi, No wheezing Cardiac/Chest: regular rate, rhythm, No diastolic murmur, No systolic murmur Abdomen: normal bowel sounds, non-tender, soft, No distended Neuro/Psych: alert, normal mood/affect, oriented x 3 ICD10 Worksheet Patient Problems: Problems Problem Status Onset DVT (deep venous thrombosis) Acute Fusion of spine of lumbar region Acute Pulmonary embolism Acute
[2017-05-06] MEDS: CYCLOBENZAPRINE 10 MG TAB TUBE SCH (20:39)
[2017-05-06] MEDS: MELATONIN 3 MG TAB PO SCH (20:39)
[2017-05-06] MEDS: LATANOPROST 0.005% 2.5 ML OPHT DROPS EACHEYE SCH (20:40)
[2017-05-07] MEDS: oxyCODONE IR 5 MG TAB TUBE PRN ×4 (01:58→20:29)
[2017-05-07] MEDS: metFORMIN HCL 500 MG TAB TUBE SCH ×2 (07:44→17:12)
[2017-05-07] MEDS: buPROPion 100 MG TAB TUBE SCH ×2 (07:45→14:11)
[2017-05-07] MEDS: CHOLECALCIFEROL VIT D3 2,000 UNITS TAB/CAP PO SCH (09:15)
[2017-05-07] MEDS: ENOXAPARIN 40 MG/0.4 ML SYR SC SCH (09:15)
--- NOTE | 2017-05-07 09:55 | SOAPPROG ---
SOAP Progress Note Assessment/Plan: Assessment: 67 yo F s/p revision of anterior cervical diskectomy and fusion C3-C4, and ACDF C5-C6 0n 04/24/17, with h/o CVA 2014 and residual L weakness: * Debility status post cervical spine surgery. Initial FIM 64 on 05/05/17. SBA/ S bed mobility. Walked 75' FWW. Toilet T'doreen CGA, toileting S; needs assist for tubes and lines.UB dressing S except min A for cervical collar; min A for LB dressing. Otherwise set-up/S for ADLs. Continue PT and OT to optimize mobility and activities of daily living. * Dysphagia status post cervical spine surgery. Feeding by PEG tube. Has edema form surgery interfering with epiglottic inversion for swallowing. 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 Continue treatment by Speech and Language Pathology. * F/E/N. Plan to change to bolus feeding from continuous, and to change to formula with more fiber due to loose stools. Continue management per dietitian. * Diarrhea. Improved with no overnight symptoms 05/06/17 - 05/07/17. Unusual with large opiate doses. Check stool for C. difficile if it does not resolve with formula change. * Pain management. Continue fentanyl transdermal at 50 mcg/hour, changing q.72 hours. Continue hydromorphone/acetaminophen combination medication as well as oxycodone immediate release. PRN meds have been approximately equal to 37.5 mcg /hr fentanyl, mostly daytime due to increased activity. Continue current management; patient does not want to increase fentanyl. * Hypoxia, multifactorial, with diastolic dysfunction on echocardiogram, history of smoking, and bilateral lower lobe atelectasis on abdominal CT. Anemia may contribute. Incentive spirometry. Follow blood counts. No signs or symptoms of pneumonia or pulmonary embolus. * Depression. Discussed options. She reports she was excessively somnolent when treated with fluoxetine in the past, so will not initiate SSRIs or SNRIs. Trial of bupropion starting 05/04/17 at a small dose 75 mg at 8 in the morning and 1400. Tolerating well; increase dose to 100 mg starting 05/07/17. Evaluation by social media designer for non-pharmacologic interventions. * History of deep venous thrombosis and pulmonary embolus. She is on enoxaparin as ordered out of the hospital, which will be continued. * Insomnia. This may improve with treatment of depression. Initiated melatonin 3 mg p.o. q.h.s. in order to regulate her sleep-wake cycle. * Question of muscle spasm. She is prescribed on hospital discharge cyclobenzaprine, methocarbamol as well as diazepam. We will discontinue methocarbamol and will monitor for need for antispasmodics. We will discontinue if she shows no benefit. Chronic/stable conditions: * History of cerebrovascular accident approximately 2 years ago. She reports that she was not placed on aspirin or statin per Neurologist Dr. Dai. Stroke was treated at [facility]. * Osteoporosis with h/o hip fracture. D/W Jesus Chavira, Neurosurgery PA: no contraindication to alendronate. D/W pharmacy: no longer on formulary; hospital policy is to restart after discharge. D/W patient regarding possibility of injectable zoledronic acid if it seems her prognosis for recovering swallowing is weeks to months. * Diabetes mellitus type 2. Hemoglobin A1c 6.7 on 05/05/17. No indication to increase metformin. Wound Care Instructions: leave steri strips on until 14-17 days post op then able to remove (05/08 - 05/16/17) House is ADA compliant as she cared for her there who is chronically ill and subsequently . Set discharge goal of 05/16/2017. Follow-up after discharge: JOLEEN TAMEZ [Primary Care Provider] Wallace Pittman MD [Cardiology] Gagan Hoang MD [Neurosurgery] 05/07/17 09:45 Subjective: Had increased pain yesterday with increased activity. Used p.r.n. opiates 7 times including once overnight for a total of 30 mg of hydrocodone and 40 mg of oxycodone. Continues with left neck and shoulder pain, low back pain, and some discomfort at the PEG site. Peg site discomfort is improving. No diarrhea overnight. No cough, dyspnea, fevers, chills. Objective: Vital Signs Temp Pulse Resp BP Pulse Ox 36.4 C 78 16 114/71 94 05/07/17 07:13 05/07/17 07:13 05/07/17 07:13 05/07/17 07:13 05/07/17 07:13 Laboratory Results 05/05/17 06:10 05/05/17 06:10 05/06/17 05/07/17 05/08/17 05:59 05:59 05:59 Intake Total 2200 3263 Output Total 1225 1800 Balance 975 1463 Physical Exam - Physical Exam General Appearance: WD/WN, alert, no apparent distress Respiratory: No respiratory distress, No accessory muscle use Cardiac/Chest: No edema Abdomen: normal bowel sounds, non-tender, soft, other (Peg site without erythema or exudate.), No distended Skin: normal color, warm/dry Neuro/Psych: alert, normal mood/affect, oriented x 3, No depressed affect ICD10 Worksheet Patient Problems: Problems Problem Status Onset DVT (deep venous thrombosis) Acute Fusion of spine of lumbar region Acute Pulmonary embolism Acute
[2017-05-07] MEDS: HYDROCOD/APAP 7.5/325 IN 15ML UDCUP TUBE PRN ×2 (11:06→17:13)
[2017-05-07] MEDS: MELATONIN 3 MG TAB PO SCH (20:19)
[2017-05-07] MEDS: CYCLOBENZAPRINE 10 MG TAB TUBE SCH (20:19)
[2017-05-07] MEDS: LATANOPROST 0.005% 2.5 ML OPHT DROPS EACHEYE SCH (20:20)
[2017-05-08] MEDS: oxyCODONE IR 5 MG TAB TUBE PRN ×3 (04:58→18:27)
[2017-05-08] MEDS: FAMOTIDINE 20 MG TAB TUBE PRN (08:41)
[2017-05-08] MEDS: HYDROCOD/APAP 7.5/325 IN 15ML UDCUP TUBE PRN ×2 (08:44→16:44)
[2017-05-08] MEDS: CHOLECALCIFEROL VIT D3 2,000 UNITS TAB/CAP PO SCH (08:45)
[2017-05-08] MEDS: metFORMIN HCL 500 MG TAB TUBE SCH ×2 (08:45→18:27)
[2017-05-08] MEDS: buPROPion 100 MG TAB TUBE SCH ×2 (08:45→13:40)
[2017-05-08] MEDS: ENOXAPARIN 40 MG/0.4 ML SYR SC SCH (08:46)
--- NOTE | 2017-05-08 13:13 | SOAPPROG ---
SOAP Progress Note Assessment/Plan: Assessment: 67 yo F s/p revision of anterior cervical diskectomy and fusion C3-C4, and ACDF C5-C6 0n 04/24/17, with h/o CVA 2014 and residual L weakness: * Debility status post cervical spine surgery. Initial FIM 64 on 05/05/17. SBA/ S bed mobility. Walked 75' FWW. Toilet T'doreen CGA, toileting S; needs assist for tubes and lines.UB dressing S except min A for cervical collar; min A for LB dressing. Otherwise set-up/S for ADLs. Continue PT and OT to optimize mobility and activities of daily living. * Dysphagia status post cervical spine surgery. Feeding by PEG tube. Has edema form surgery interfering with epiglottic inversion for swallowing. 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 Continue treatment by Speech and Language Pathology. * F/E/N. Changed to bolus feeding as of 05/08/17 from continuous; changed to formula with more fiber due to loose stools. Continue management per dietitian. * Diarrhea. Resolved with formula change. * Pain management. Continue fentanyl transdermal at 50 mcg/hour, changing q.72 hours. Continue hydromorphone/acetaminophen combination medication as well as oxycodone immediate release. PRN meds have been approximately equal to 37.5 mcg /hr fentanyl, mostly daytime due to increased activity. Continue current management; patient does not want to increase fentanyl. * Hypoxia, multifactorial, with diastolic dysfunction on echocardiogram, history of smoking, and bilateral lower lobe atelectasis on abdominal CT. Anemia may contribute. Incentive spirometry. Follow blood counts. No signs or symptoms of pneumonia or pulmonary embolus. * Depression. Discussed options. She reports she was excessively somnolent when treated with fluoxetine in the past, so will not initiate SSRIs or SNRIs. Trial of bupropion starting 05/04/17 at a small dose 75 mg at 8 in the morning and 1400. Tolerating well; increase dose to 100 mg starting 05/07/17. Evaluation by social worker clinical for non-pharmacologic interventions. * History of deep venous thrombosis and pulmonary embolus. She is on enoxaparin as ordered out of the hospital, which will be continued. * Insomnia. Sleeping well. Change melatonin to PRN 05/08/17. * Question of muscle spasm. She is prescribed on hospital discharge cyclobenzaprine, methocarbamol as well as diazepam. We will discontinue methocarbamol and will monitor for need for antispasmodics. We will discontinue if she shows no benefit. Chronic/stable conditions: * History of cerebrovascular accident approximately 2 years ago. She reports that she was not placed on aspirin or statin per Neurologist Dr. Dai. Stroke was treated at [facility]. * Osteoporosis with h/o hip fracture. D/W Jesus Chavira, Neurosurgery PA: no contraindication to alendronate. D/W pharmacy: no longer on formulary; hospital policy is to restart after discharge. D/W patient regarding possibility of injectable zoledronic acid if it seems her prognosis for recovering swallowing is weeks to months. * Diabetes mellitus type 2. Hemoglobin A1c 6.7 on 05/05/17. No indication to increase metformin. Wound Care Instructions: leave steri strips on until 14-17 days post op then able to remove (05/13 - 05/16/17) House is ADA compliant as she cared for her there who is chronically ill and subsequently . Set discharge goal of 05/16/2017. Follow-up after discharge: JOLEEN TAMEZ [Primary Care Provider] Wallace Pittman MD [Cardiology] Gagan Hoang MD [Neurosurgery] 05/08/17 13:13 Subjective: Still has pain but has adequate pain control. No diarrhea overnight; diarrhea is resolving with fiber added to tube feed formula. Denies fevers, chills, cough, dyspnea. Reports she had a trial of ice cream with speech therapy today. Wonders if she can go home early. Objective: Vital Signs Temp Pulse Resp BP Pulse Ox 37.0 C 95 14 117/77 93 05/08/17 07:33 05/08/17 07:33 05/08/17 07:33 05/08/17 07:33 05/08/17 07:33 Laboratory Results 05/05/17 06:10 05/05/17 06:10 05/07/17 05/08/17 05/09/17 05:59 05:59 05:59 Intake Total 3263 2004 Output Total 1800 1350 Balance 1463 655 Physical Exam - Physical Exam General Appearance: WD/WN, alert, no apparent distress Respiratory: normal breath sounds, No crackles, No rhonchi, No wheezing Cardiac/Chest: regular rate, rhythm, No diastolic murmur, No systolic murmur Skin: normal color, warm/dry Neuro/Psych: no motor/sensory deficits, alert, normal mood/affect, oriented x 3 ICD10 Worksheet Patient Problems: Problems Problem Status Onset DVT (deep venous thrombosis) Acute Fusion of spine of lumbar region Acute Pulmonary embolism Acute
[2017-05-08] MEDS ORDERED: MELATONIN 3 MG TAB PO PRN (13:17)
[2017-05-08] MEDS: SENNOSIDES 17.6 MG/10 ML UDL TUBE PRN (16:44)
[2017-05-08] MEDS: CYCLOBENZAPRINE 10 MG TAB TUBE SCH (21:09)
[2017-05-08] MEDS: LATANOPROST 0.005% 2.5 ML OPHT DROPS EACHEYE SCH (21:10)
[2017-05-09] MEDS: HYDROCOD/APAP 7.5/325 IN 15ML UDCUP TUBE PRN ×3 (00:56→17:02)
[2017-05-09] MEDS: oxyCODONE IR 5 MG TAB TUBE PRN ×3 (07:59→21:12)
[2017-05-09 08:43] LABS: % IMMATURE GRANULYOCYTES 0.5 % (0.0-1.1); ABSOLUTE IMMATURE GRANULOCYTES 0.03 10^3/uL (0.00-0.10); ADD DIFF? NO; ADD MORPH? NO; ADD SCAN? NO; ATYPICAL LYMPHOCYTE FLAG 10 (0-99); FRAGMENT RBC FLAG 0 (0-99); HEMATOCRIT 33.1 % (38.0-47.0); HEMOGLOBIN 10.6 g/dL (12.6-16.3); LEFT SHIFT FLG 0 (0-99); LIPEMIA HEMOLYSIS FLAG 80 (0-99); MEAN CELL HEMOGLOBIN 31.1 pg (27.9-34.1); MEAN CELL VOLUME 97.1 fL (81.5-99.8); MEAN PLATELET VOLUME 10.7 fL (8.7-11.7); PLATELET CLUMPS FLAG 0 (0-99); PLATELET COUNT 209 10^3/uL (150-400); RED BLOOD CELL COUNT 3.41 10^6/uL (4.18-5.33); RED CELL DISTRIBUTION WIDTH 12.2 % (11.5-15.2)
[2017-05-09] MEDS: CHOLECALCIFEROL VIT D3 2,000 UNITS TAB/CAP PO SCH (09:02)
[2017-05-09] MEDS: buPROPion 100 MG TAB TUBE SCH ×2 (09:02→13:24)
[2017-05-09] MEDS: ENOXAPARIN 40 MG/0.4 ML SYR SC SCH (09:02)
[2017-05-09] MEDS: fentaNYL 50 MCG PATCH TD SCH (09:03)
[2017-05-09] MEDS: metFORMIN HCL 500 MG TAB TUBE SCH ×2 (09:03→17:02)
--- NOTE | 2017-05-09 10:31 | SOAPPROG ---
SOAP Progress Note Assessment/Plan: Assessment: 67 yo F s/p revision of anterior cervical diskectomy and fusion C3-C4, and ACDF C5-C6 0n 04/24/17, with h/o CVA 2014 and residual L weakness: * Debility status post cervical spine surgery. Initial FIM 64 on 05/05/17. SBA/ S bed mobility. Walked 75' FWW. Toilet T'doreen CGA, toileting S; needs assist for tubes and lines.UB dressing S except min A for cervical collar; min A for LB dressing. Otherwise set-up/S for ADLs. Continue PT and OT to optimize mobility and activities of daily living. * Dysphagia status post cervical spine surgery. Feeding by PEG tube. Has edema from surgery interfering with epiglottic inversion for swallowing. Trial of PO foods today 05/09/17. Continue treatment by Speech and Language Pathology. * F/E/N. Changed to bolus feeding as of 05/08/17 from continuous; changed to formula with more fiber due to loose stools. Continue management per dietitian. * Pain management. Continue fentanyl transdermal at 50 mcg/hour, changing q.72 hours. Continue hydromorphone/acetaminophen combination medication as well as oxycodone immediate release. PRN meds have been approximately equal to 37.5 mcg /hr fentanyl, mostly daytime due to increased activity. Continue current management; patient does not want to increase fentanyl. * Hypoxia, multifactorial, with diastolic dysfunction on echocardiogram, history of smoking, history of pulmonary embolus, and bilateral lower lobe atelectasis on abdominal CT. Anemia may contribute. Incentive spirometry. Follow blood counts. No signs or symptoms of pneumonia or pulmonary embolus. * Anemia, improving on labs 05/09/17. * Depression. Discussed options. She reports she was excessively somnolent when treated with fluoxetine in the past, so will not initiate SSRIs or SNRIs. Trial of bupropion starting 05/04/17 at a small dose 75 mg at 8 in the morning and 1400. Tolerating well; increase dose to 100 mg starting 05/07/17. Evaluation by mental health social worker for non-pharmacologic interventions. * History of deep venous thrombosis and pulmonary embolus. She is on enoxaparin as ordered out of the hospital, which will be continued. D/W pulmopnologist Dr. Barba 05/09/17: OK to d/c anticoagulation when mobility improves. * Insomnia. Sleeping well. Change melatonin to PRN 05/08/17. * Question of muscle spasm. She is prescribed on hospital discharge cyclobenzaprine, methocarbamol as well as diazepam. We will discontinue methocarbamol and will monitor for need for antispasmodics. We will discontinue if she shows no benefit. Chronic/stable conditions: * Diarrhea. Resolved with formula change. * History of cerebrovascular accident approximately 2 years ago. She reports that she was not placed on aspirin or statin per Neurologist Dr. Dai. Stroke was treated at [facility]. * Osteoporosis with h/o hip fracture. D/W Jesus Chavira, Neurosurgery PA: no contraindication to alendronate. D/W pharmacy: no longer on formulary; hospital policy is to restart after discharge. D/W patient regarding possibility of injectable zoledronic acid if it seems her prognosis for recovering swallowing is weeks to months. * Diabetes mellitus type 2. Hemoglobin A1c 6.7 on 05/05/17. No indication to increase metformin. * Sinus arrest 5 seconds during PEG placement. Follow-up with Cardiology for 30 - day event monitor after discharge. Wound Care Instructions: leave steri strips on until 14-17 days post op then able to remove (05/13 - 05/16/17) House is ADA compliant as she cared for her there who is chronically ill and subsequently . Set discharge goal of 05/16/2017. Follow-up after discharge: JOLEEN TAMEZ [Primary Care Provider] Dr. Mcintyre [Cardiology] Gagan Hoang MD [Neurosurgery] 05/09/17 11:56 Subjective: Continues to have back pain. Accepts that she needs to live with it. Says she had difficulty attaining sleep last night. Discussed availability of melatonin as a p.r.n. and cyclobenzaprine as a p.r.n.. She reports that she uses cyclobenzaprine at home sometimes to help sleep. She reports that she may trial p.o. food today. She denies cough or dyspnea and reports that she is down to 1 L of oxygen. Objective: Vital Signs Temp Pulse Resp BP Pulse Ox 36.6 C 79 16 81/47 L 90 L 05/09/17 06:43 05/09/17 06:43 05/09/17 06:43 05/09/17 06:43 05/09/17 06:43 Laboratory Results 05/09/17 06:15 05/05/17 06:10 05/08/17 05/09/17 05/10/17 05:59 05:59 05:59 Intake Total 2004 2059 490 Output Total 1350 1800 401 Balance 655 260 89 Physical Exam - Physical Exam General Appearance: WD/WN, alert, no apparent distress Respiratory: No respiratory distress, No accessory muscle use Cardiac/Chest: No edema Skin: normal color, warm/dry Neuro/Psych: no motor/sensory deficits, alert, normal mood/affect, oriented x 3 , abnormal gait (Flexed posture, wide base, with 4WW.), other (Needs assistance getting left leg back into bed.) ICD10 Worksheet Patient Problems: Problems Problem Status Onset DVT (deep venous thrombosis) Acute Fusion of spine of lumbar region Acute Pulmonary embolism Acute
[2017-05-09] MEDS: DIAZEPAM 5 MG TAB TUBE PRN (14:29)
[2017-05-09] MEDS: CYCLOBENZAPRINE 10 MG TAB TUBE SCH (21:12)
[2017-05-09] MEDS: LATANOPROST 0.005% 2.5 ML OPHT DROPS EACHEYE SCH (22:54)
[2017-05-10] MEDS: oxyCODONE IR 5 MG TAB TUBE PRN ×3 (03:42→20:11)
[2017-05-10] MEDS: HYDROCOD/APAP 7.5/325 IN 15ML UDCUP TUBE PRN ×2 (07:54→17:48)
[2017-05-10] MEDS: SENNOSIDES 17.6 MG/10 ML UDL TUBE PRN (07:55)
[2017-05-10] MEDS: metFORMIN HCL 500 MG TAB TUBE SCH ×2 (07:56→17:48)
[2017-05-10] MEDS: ENOXAPARIN 40 MG/0.4 ML SYR SC SCH (07:56)
[2017-05-10] MEDS: buPROPion 100 MG TAB TUBE SCH ×2 (07:56→14:02)
[2017-05-10] MEDS: CHOLECALCIFEROL VIT D3 2,000 UNITS TAB/CAP PO SCH (07:56)
--- NOTE | 2017-05-10 10:47 | SOAPPROG ---
SOAP Progress Note Assessment/Plan: Assessment: Plan: 05/10/17 10:48 67 yo F s/p revision of anterior cervical diskectomy and fusion C3-C4, and ACDF C5-C6 0n 04/24/17, with h/o CVA 2014 and residual L weakness: * Debility status post cervical spine surgery. Initial FIM 64 on 05/05/17. SBA/ S bed mobility. Walked 75' FWW. Toilet T'doreen CGA, toileting S; needs assist for tubes and lines.UB dressing S except min A for cervical collar; min A for LB dressing. Otherwise set-up/S for ADLs. Continue PT and OT to optimize mobility and activities of daily living. * Dysphagia status post cervical spine surgery. Feeding by PEG tube. Has edema from surgery interfering with epiglottic inversion for swallowing. Trial of PO foods today 05/09/17. Continue treatment by Speech and Language Pathology. PLEASE CLARIFY WITH HER SPINE SURGEON IF SHE CAN WEAR A SOFT CERVICAL COLLAR DURING FEEDING. * F/E/N. Changed to bolus feeding as of 05/08/17 from continuous; changed to formula with more fiber due to loose stools. Continue management per dietitian. * Pain management. Continue fentanyl transdermal at 50 mcg/hour, changing q.72 hours. Continue hydromorphone/acetaminophen combination medication as well as oxycodone immediate release. PRN meds have been approximately equal to 37.5 mcg /hr fentanyl, mostly daytime due to increased activity. Continue current management; patient does not want to increase fentanyl. CONSIDER OPIOID WEAN LATER THIS WEEK. * Hypoxia, multifactorial, with diastolic dysfunction on echocardiogram, history of smoking, history of pulmonary embolus, and bilateral lower lobe atelectasis on abdominal CT. Anemia may contribute. Incentive spirometry. HEMOGLOBIN AND HEMATOCRIT FROM EARLIER YESTERDAY 10.6/33.1. No signs or symptoms of pneumonia or pulmonary embolus. * Anemia, improving on labs 05/09/17. * Depression. Discussed options. She reports she was excessively somnolent when treated with fluoxetine in the past, so will not initiate SSRIs or SNRIs. Trial of bupropion starting 05/04/17 at a small dose 75 mg at 8 in the morning and 1400. Tolerating well; increase dose to 100 mg starting 05/07/17. Evaluation by social science professor for non-pharmacologic interventions. * History of deep venous thrombosis and pulmonary embolus. She is on enoxaparin as ordered out of the hospital, which will be continued. D/W pulmopnologist Dr. Barba 05/09/17: OK to d/c anticoagulation when mobility improves. * Insomnia. Sleeping well. Change melatonin to PRN 05/08/17. * LEFT LOWER EXTREMITY WEAKNESS-ON MOST LIKELY FROM PREVIOUS CVA. WOULD BENEFIT FROM FOCAL AND DISTAL EXERCISES TO STRENGTHEN LEFT HIP FLEXORS, GLUTEUS MEDIUS, LARRY, HAMSTRINGS AND QUADRICEPS. PATIENT SHOULD BE PROVIDED WITH THERA-BAND AND EXERCISE SHE SO THAT SHE CAN PERFORM THESE SUPPLEMENTAL EXERCISES BETWEEN THERAPY SESSIONS. * Question of muscle spasm. She is prescribed on hospital discharge cyclobenzaprine, methocarbamol as well as diazepam. We will discontinue methocarbamol and will monitor for need for antispasmodics. We will discontinue if she shows no benefit. RECOMMEND DISCONTINUING THE CYCLOBENZAPRINE Chronic/stable conditions: * Diarrhea. Resolved with formula change. * History of cerebrovascular accident approximately 2 years ago. She reports that she was not placed on aspirin or statin per Neurologist Dr. Dai. Stroke was treated at [facility]. * Osteoporosis with h/o hip fracture. D/W Jesus Chavira, Neurosurgery PA: no contraindication to alendronate. D/W pharmacy: no longer on formulary; hospital policy is to restart after discharge. D/W patient regarding possibility of injectable zoledronic acid if it seems her prognosis for recovering swallowing is weeks to months. * Diabetes mellitus type 2. Hemoglobin A1c 6.7 on 05/05/17. No indication to increase metformin. * Sinus arrest 5 seconds during PEG placement. Follow-up with Cardiology for 30 - day event monitor after discharge. Wound Care Instructions: leave steri strips on until 14-17 days post op then able to remove (05/13 - 05/16/17) Subjective: SHE REPORTS NO SHORTNESS OF BREATH ON 1 L OF O2 PER NASAL CANNULA. SHE WAS 84% SATURATION ON ROOM AIR EARLIER THIS MORNING. SHE CONTINUES GETTING PEG FEEDING WITH THE BOLUSES. SHE WAS ABLE TO EAT A BANANA EARLIER THIS MORNING WITHOUT MUCH DIFFICULTY. SHE CONTINUES WORKING WITH SPEECH THERAPIST. Objective: Vital Signs Temp Pulse Resp BP Pulse Ox 36.5 C 79 18 97/64 L 93 05/10/17 07:53 05/10/17 07:53 05/10/17 07:53 05/10/17 07:53 05/10/17 09:26 Laboratory Results 05/09/17 06:15 05/05/17 06:10 05/09/17 05/10/17 05/11/17 05:59 05:59 05:59 Intake Total 2060 1670 590 Output Total 1800 1171 300 Balance 260 499 290 Physical Exam - Physical Exam General Appearance: WD/WN, alert, thin EENT: PERRL/EOMI Neck: other (HARD CERVICAL COLLAR IN PLACE) Respiratory: lungs clear, normal breath sounds Abdomen: non-tender, soft, other (PEG TUBE IN PLACE SKIN INSERTION POINT WITHOUT DRAINAGE.) Skin: normal color, warm/dry Neuro/Psych: motor weakness (LEFT LOWER EXTREMITY WEAKNESS DUE TO PREVIOUS CVA. GROSSLY NORMAL UPPER EXTREMITY MOTOR EXAM. ALL), No normal mood/affect ( BLUNT AFFECT.), No abnormal fiber optics engineer II-XII ICD10 Worksheet Patient Problems: Problems Problem Status Onset DVT (deep venous thrombosis) Acute Fusion of spine of lumbar region Acute Pulmonary embolism Acute
[2017-05-10] MEDS: CYCLOBENZAPRINE 10 MG TAB TUBE SCH (20:11)
[2017-05-10] MEDS: LATANOPROST 0.005% 2.5 ML OPHT DROPS EACHEYE SCH (20:19)
[2017-05-11] MEDS: oxyCODONE IR 5 MG TAB TUBE PRN ×4 (00:44→17:42)
[2017-05-11] MEDS: SENNOSIDES 17.6 MG/10 ML UDL TUBE PRN ×2 (06:10→17:47)
[2017-05-11] MEDS: buPROPion 100 MG TAB TUBE SCH ×2 (08:14→12:55)
[2017-05-11] MEDS: CHOLECALCIFEROL VIT D3 2,000 UNITS TAB/CAP PO SCH (08:14)
[2017-05-11] MEDS: metFORMIN HCL 500 MG TAB TUBE SCH ×2 (08:14→17:42)
[2017-05-11] MEDS: ENOXAPARIN 40 MG/0.4 ML SYR SC SCH (08:14)
[2017-05-11] MEDS: HYDROCOD/APAP 7.5/325 IN 15ML UDCUP TUBE PRN (10:29)
--- NOTE | 2017-05-11 10:31 | SOAPPROG ---
SOAP Progress Note Assessment/Plan: Assessment: Plan: 05/10/17 10:48 67 yo F s/p revision of anterior cervical diskectomy and fusion C3-C4, and ACDF C5-C6 0n 04/24/17, with h/o CVA 2014 and residual L weakness: * Debility status post cervical spine surgery. Initial FIM 64 on 05/05/17. SBA/ S bed mobility. Walked 75' FWW. Toilet T'doreen CGA, toileting S; needs assist for tubes and lines.UB dressing S except min A for cervical collar; min A for LB dressing. Otherwise set-up/S for ADLs. Continue PT and OT to optimize mobility and activities of daily living. * Dysphagia status post cervical spine surgery. Per request of her speech therapist today, will put tube feeds on hold. Has edema from surgery interfering with epiglottic inversion for swallowing. Trial of PO foods today . Continue treatment by Speech and Language Pathology. PLEASE CLARIFY WITH HER SPINE SURGEON IF SHE CAN WEAR A SOFT CERVICAL COLLAR DURING FEEDING. * CONSTIPATION-HOME PAST 4 DAYS-ON WILL WRITE ORDER FOR MIRALAX IN P.R.N. WHICH CAN BE PLACED DOWN PEG TUBE. * F/E/N. Changed to bolus feeding as of 05/08/17 from continuous; changed to formula with more fiber due to loose stools. Continue management per dietitian. * Pain management. Continue fentanyl transdermal at 50 mcg/hour, changing q.72 hours. Continue hydromorphone/acetaminophen combination medication as well as oxycodone immediate release. PRN meds have been approximately equal to 37.5 mcg /hr fentanyl, mostly daytime due to increased activity. Continue current management; patient does not want to increase fentanyl. CONSIDER OPIOID WEAN LATER THIS WEEK. * Hypoxia, multifactorial, with diastolic dysfunction on echocardiogram, history of smoking, history of pulmonary embolus, and bilateral lower lobe atelectasis on abdominal CT. Anemia may contribute. Incentive spirometry. HEMOGLOBIN AND HEMATOCRIT FROM EARLIER YESTERDAY 10.6/33.1. No signs or symptoms of pneumonia or pulmonary embolus. * Anemia, improving on labs 05/09/17. * Depression. Discussed options. She reports she was excessively somnolent when treated with fluoxetine in the past, so will not initiate SSRIs or SNRIs. Trial of bupropion starting 05/04/17 at a small dose 75 mg at 8 in the morning and 1400. Tolerating well; increase dose to 100 mg starting 05/07/17. Evaluation by social media developer for non-pharmacologic interventions. * History of deep venous thrombosis and pulmonary embolus. She is on enoxaparin as ordered out of the hospital, which will be continued. D/W pulmopnologist Dr. Barba 05/09/17: OK to d/c anticoagulation when mobility improves. * Insomnia. Sleeping well. Change melatonin to PRN 05/08/17. * LEFT LOWER EXTREMITY WEAKNESS-ON MOST LIKELY FROM PREVIOUS CVA. WOULD BENEFIT FROM FOCAL AND DISTAL EXERCISES TO STRENGTHEN LEFT HIP FLEXORS, GLUTEUS MEDIUS, LARRY, HAMSTRINGS AND QUADRICEPS. PATIENT SHOULD BE PROVIDED WITH THERA-BAND AND EXERCISE SHE SO THAT SHE CAN PERFORM THESE SUPPLEMENTAL EXERCISES BETWEEN THERAPY SESSIONS. * Question of muscle spasm. She is prescribed on hospital discharge cyclobenzaprine, methocarbamol as well as diazepam. We will discontinue methocarbamol and will monitor for need for antispasmodics. We will discontinue if she shows no benefit. RECOMMEND DISCONTINUING THE CYCLOBENZAPRINE Chronic/stable conditions: * Diarrhea. Resolved with formula change. * History of cerebrovascular accident approximately 2 years ago. She reports that she was not placed on aspirin or statin per Neurologist Dr. Dai. Stroke was treated at [facility]. * Osteoporosis with h/o hip fracture. D/W Jesus Chavira, Neurosurgery PA: no contraindication to alendronate. D/W pharmacy: no longer on formulary; hospital policy is to restart after discharge. D/W patient regarding possibility of injectable zoledronic acid if it seems her prognosis for recovering swallowing is weeks to months. * Diabetes mellitus type 2. Hemoglobin A1c 6.7 on 05/05/17. No indication to increase metformin. * Sinus arrest 5 seconds during PEG placement. Follow-up with Cardiology for 30 - day event monitor after discharge. Wound Care Instructions: leave steri strips on until 14-17 days post op then able to remove (05/13 - 05/16/17) 05/11/17 10:27 Subjective: Patient reports difficulty swallowing during feeding due to hard cervical collar. Speech therapy has asked to put her tube feedings on hold to help increase her appetite. Nursing is requesting an MiraLAX p.r.n. down the PEG tube for 4 days constipation. Objective: Vital Signs Temp Pulse Resp BP Pulse Ox 36.7 C 83 12 104/67 92 05/11/17 06:36 05/11/17 06:36 05/11/17 06:36 05/11/17 06:36 05/11/17 06:36 Laboratory Results 05/09/17 06:15 05/05/17 06:10 05/10/17 05/11/17 05/12/17 05:59 05:59 05:59 Intake Total 1670 2320 118 Output Total 1171 2150 400 Balance 499 170 -282 Physical Exam - Physical Exam General Appearance: WD/WN, alert, no apparent distress EENT: other (Hard cervical collar in place.) Neck: other (Unable to assess range of motion secondary to a hard cervical collar) Respiratory: chest non-tender (In place.), lungs clear, normal breath sounds Cardiac/Chest: No edema Abdomen: normal bowel sounds, non-tender, soft Skin: normal color, warm/dry Neuro/Psych: oriented x 3 (Left lower greater than left upper extremity weakness. Seeded right and left hip flexion 3/5. 4/5 right left quadriceps and tibialis anterior.), motor weakness ICD10 Worksheet Patient Problems: Problems Problem Status Onset DVT (deep venous thrombosis) Acute Fusion of spine of lumbar region Acute Pulmonary embolism Acute
[2017-05-11] MEDS: POLYETHYLENE GLYCOL 3350 17 GM PKT TUBE SCH (12:53)
[2017-05-11] MEDS: DIAZEPAM 5 MG TAB TUBE PRN (17:42)
[2017-05-11] MEDS: LATANOPROST 0.005% 2.5 ML OPHT DROPS EACHEYE SCH (20:33)
[2017-05-11] MEDS: CYCLOBENZAPRINE 10 MG TAB TUBE SCH (20:33)
[2017-05-12] MEDS: oxyCODONE IR 5 MG TAB TUBE PRN ×4 (00:24→13:41)
[2017-05-12] MEDS: DIAZEPAM 5 MG TAB TUBE PRN (00:25)
[2017-05-12] MEDS: HYDROCOD/APAP 7.5/325 IN 15ML UDCUP TUBE PRN (07:56)
[2017-05-12] MEDS: metFORMIN HCL 500 MG TAB TUBE SCH ×2 (07:56→17:48)
[2017-05-12] MEDS: buPROPion 100 MG TAB TUBE SCH ×2 (07:56→13:41)
[2017-05-12] MEDS: fentaNYL 50 MCG PATCH TD SCH (09:24)
[2017-05-12] MEDS: ENOXAPARIN 40 MG/0.4 ML SYR SC SCH (09:27)
[2017-05-12] MEDS: CHOLECALCIFEROL VIT D3 2,000 UNITS TAB/CAP PO SCH (09:28)
[2017-05-12] MEDS: POLYETHYLENE GLYCOL 3350 17 GM PKT TUBE SCH (10:05)
--- NOTE | 2017-05-12 10:48 | SOAPPROG ---
SOAP Progress Note Assessment/Plan: Assessment: 67 yo F s/p revision of anterior cervical diskectomy and fusion C3-C4, and ACDF C5-C6 0n 04/24/17, with h/o CVA 2014 and residual L weakness: * Debility status post cervical spine surgery. Initial FIM 60 on 05/05/17; increase to 87 on 05/12/2017. Standby assist with 4 old walker for transfers and ambulation up to 100 feet. Has a decreased endurance, balance and midline control. Independent for bed mobility if head of bed is raised and she uses bed rails. Requires standby assist for dressing, supervision for toileting has been given a senior director finance for objects retrieval if she drops something. UB dressing S except min A for cervical collar; min A for LB dressing. Set-up/S for ADLs. Continue PT and OT to optimize mobility and activities of daily living. PT approaching her more as a post stroke patient van as a post neck surgery patient , working on strength balance and endurance. * Dysphagia status post cervical spine surgery. Advanced to nectar thick liquids and dysphagia 2 texture. Tube feeding has been discontinued; taking 25 % of caloric needs by mouth. Continue treatment by Speech and Language Pathology. * F/E/N. Adding supplements for adequate protein and calorie intake. Continue management per dietitian. * Pain management. Continue fentanyl transdermal at 50 mcg/hour, changing q.72 hours. Continue hydromorphone/acetaminophen combination medication as well as oxycodone immediate release. PRN meds have been approximately equal to 37.5 mcg /hr fentanyl, mostly daytime due to increased activity. Continue current management; patient does not want to increase fentanyl. * Hypoxia, multifactorial, with diastolic dysfunction on echocardiogram, history of smoking, history of pulmonary embolus, and bilateral lower lobe atelectasis on abdominal CT. Anemia may contribute.. Incentive spirometry. No signs or symptoms of pneumonia or pulmonary embolus. * Anemia, improving on labs 05/09/17. * Depression. Discussed options. She reports she was excessively somnolent when treated with fluoxetine in the past, so will not initiate SSRIs or SNRIs. Trial of bupropion starting 05/04/17 at a small dose 75 mg at 8 in the morning and 1400. Tolerating well; increase dose to 100 mg starting 05/07/17. Evaluation by social media job titles for non-pharmacologic interventions. * History of deep venous thrombosis and pulmonary embolus. She is on enoxaparin as ordered out of the hospital, which will be continued. D/W hearing healthcare practitioner Dr. Barba 05/09/17: OK to d/c anticoagulation when mobility improves. * Insomnia. Sleeping well. Change melatonin to PRN 05/08/17. * Question of muscle spasm. She is prescribed on hospital discharge cyclobenzaprine, methocarbamol as well as diazepam. We will discontinue methocarbamol and will monitor for need for antispasmodics. We will discontinue if she shows no benefit. Chronic/stable conditions: * Diarrhea. Resolved with formula change. * History of cerebrovascular accident approximately 2 years ago. She reports that she was not placed on aspirin or statin per Neurologist Dr. Dai. Stroke was treated at [facility]. * Osteoporosis with h/o hip fracture. D/W Jesus Chavira, Neurosurgery PA: no contraindication to alendronate. D/W pharmacy: no longer on formulary; hospital policy is to restart after discharge. D/W patient regarding possibility of injectable zoledronic acid if it seems her prognosis for recovering swallowing is weeks to months. * Diabetes mellitus type 2. Hemoglobin A1c 6.7 on 05/05/17. No indication to increase metformin. * Sinus arrest 5 seconds during PEG placement. Follow-up with Cardiology for 30 - day event monitor after discharge. Wound Care Instructions: leave steri strips on until 14-17 days post op then able to remove (05/13 - 05/16/17) Attended staffing, 15 minutes. Discussed with case management, dietitian, nursing, PT, OT, WARDROBE SPECIALTY WORKER. Continue discharge goal of 05/16/2017. Plan for home PT, OT, WARDROBE SPECIALTY WORKER, nurse regarding tube flushes for PEG tube. House is ADA compliant as she cared for her there who is chronically ill and subsequently . Need to clarify level of support available from boyfriend/roommate at home. Follow-up after discharge: JOLEEN TAMEZ [Primary Care Provider] Dr. Mcintyre [Cardiology] Gagan Hoang MD [Neurosurgery] 05/12/17 10:48 05/12/17 12:09 Subjective: No complaints. Sleep is okay but normal for her. Still has left arm pain some pain at the PEG site and low back pain, tolerable for her. No fever, chills, cough, dyspnea. Oxygen need has decreased. Objective: Vital Signs Temp Pulse Resp BP Pulse Ox 36.6 C 74 16 103/65 93 05/12/17 07:45 05/12/17 07:45 05/11/17 20:00 05/12/17 07:45 05/12/17 07:45 Laboratory Results 05/09/17 06:15 05/05/17 06:10 05/11/17 05/12/17 05/13/17 05:59 05:59 05:59 Intake Total 2320 1136 120 Output Total 2150 2150 Balance 170 -1014 120 - Time Spent With Patient Time Spent With Patient: Greater than 35 minutes floor time today, including more than 50% of time in coordination of care during staffing meeting, and counseling patient. Physical Exam - Physical Exam General Appearance: WD/WN, alert, no apparent distress Respiratory: normal breath sounds, No crackles, No rhonchi, No wheezing Cardiac/Chest: regular rate, rhythm, No edema Neuro/Psych: alert, normal mood/affect, oriented x 3 ICD10 Worksheet Patient Problems: Problems Problem Status Onset DVT (deep venous thrombosis) Acute Fusion of spine of lumbar region Acute Pulmonary embolism Acute
[2017-05-12] MEDS: HYDROCODONE/APAP 10/325 TAB PO PRN (17:48)
[2017-05-12] MEDS: CYCLOBENZAPRINE 10 MG TAB TUBE SCH (22:35)
[2017-05-12] MEDS: LATANOPROST 0.005% 2.5 ML OPHT DROPS EACHEYE SCH (22:40)
[2017-05-13] MEDS: HYDROCODONE/APAP 10/325 TAB PO PRN ×4 (01:44→20:32)
--- NOTE | 2017-05-13 08:41 | SOAPPROG ---
SOAP Progress Note Assessment/Plan: Assessment/Plan: 67 yo F s/p revision of anterior cervical diskectomy and fusion C3-C4, and ACDF C5-C6 0n 04/24/17, with h/o CVA 2014 and residual L weakness: Today's update: Insomnia continues but not interested in pharmacological interventions. Episode of nighttime awakening without clear etiology, no chest pain, however could be related to an arrhythmia, current plan is for outpatient monitoring with a case monitor. Continues to have some low mood, no suicidal ideation, some anxiety about going home. She is working with social work on some of these issues as well. Neurologically improving with improved subjective sensation on her left side upper and lower limbs. A total of 25 minutes was spent on the floor in the care of the patient, the majority of which was spent counseling and coordination of care regarding treatment options for insomnia, and diagnostic and treatment options for arrhythmias. Continue remainder of medical and rehabilitation plan below. * Debility status post cervical spine surgery. Initial FIM 60 on 05/05/17; increase to 87 on 05/12/2017. Standby assist with walker for transfers and ambulation up to 100 feet. Has a decreased endurance, balance and midline control. Independent for bed mobility if head of bed is raised and she uses bed rails. Requires standby assist for dressing, supervision for toileting has been given a flare stitcher for objects retrieval if she drops something. UB dressing S except min A for cervical collar; min A for LB dressing. Set-up/S for ADLs. Continue PT and OT to optimize mobility and activities of daily living. PT approaching her more as a post stroke patient than as a post neck surgery patient, working on strength balance and endurance. * Dysphagia status post cervical spine surgery. Advanced to nectar thick liquids and dysphagia 2 texture. Tube feeding has been discontinued; taking 25 % of caloric needs by mouth. Continue treatment by Speech and Language Pathology. * F/E/N. Adding supplements for adequate protein and calorie intake. Continue management per dietitian. * Pain management. Continue fentanyl transdermal at 50 mcg/hour, changing q.72 hours. Continue hydromorphone/acetaminophen combination medication as well as oxycodone immediate release. PRN meds have been approximately equal to 37.5 mcg /hr fentanyl, mostly daytime due to increased activity. Continue current management; patient does not want to increase fentanyl. * Hypoxia, multifactorial, with diastolic dysfunction on echocardiogram, history of smoking, history of pulmonary embolus, and bilateral lower lobe atelectasis on abdominal CT. Anemia may contribute.. Incentive spirometry. No signs or symptoms of pneumonia or pulmonary embolus. * Anemia, improving on labs 05/09/17. * Depression. Discussed options. She reports she was excessively somnolent when treated with fluoxetine in the past, so will not initiate SSRIs or SNRIs. Trial of bupropion starting 05/04/17 at a small dose 75 mg at 8 in the morning and 1400. Tolerating well; increase dose to 100 mg starting 05/07/17. Evaluation by social work administrator for non-pharmacologic interventions. * History of deep venous thrombosis and pulmonary embolus. She is on enoxaparin as ordered out of the hospital, which will be continued. D/W retail store manager Dr. Barba 05/09/17: OK to d/c anticoagulation when mobility improves. * Insomnia. Endorses sleeping poorly most nights, but does not want any pharmacologic intervention. She has had 1 episode of awakening to a poorly described sensation in her chest, which has occurred 1 other time in the early part of 2017, and 1 other time earlier at an unspecified date. May be related to her need for case monitor (possible paroxysmal atrial fibrillation), has not been captured clinically. * Question of muscle spasm. She is prescribed on hospital discharge cyclobenzaprine, methocarbamol as well as diazepam. We will discontinue methocarbamol and will monitor for need for antispasmodics. We will discontinue if she shows no benefit. Chronic/stable conditions: * Diarrhea. Resolved with formula change. * History of cerebrovascular accident approximately 2 years ago. She reports that she was not placed on aspirin or statin per Neurologist Dr. Dai. Stroke was treated at [facility]. * Osteoporosis with h/o hip fracture. D/W Jesus Chavira, Neurosurgery PA: no contraindication to alendronate. D/W pharmacy: no longer on formulary; hospital policy is to restart after discharge. D/W patient regarding possibility of injectable zoledronic acid if it seems her prognosis for recovering swallowing is weeks to months. * Diabetes mellitus type 2. Hemoglobin A1c 6.7 on 05/05/17. No indication to increase metformin. * Sinus arrest 5 seconds during PEG placement. Follow-up with Cardiology for 30 - day event monitor after discharge. Has had 1 episode of awakening to a strange feeling in her chest that could be related to an arrhythmia, but it passed as quickly as it started. Wound Care Instructions: leave steri strips on until 14-17 days post op then able to remove (05/13 - 05/16/17) Continue discharge goal of 05/16/2017. Plan for home PT, OT, COST REDUCTION ENGINEER, nurse regarding tube flushes for PEG tube. House is ADA compliant as she cared for her there who is chronically ill and subsequently . Need to clarify level of support available from boyfriend/roommate at home. Follow-up after discharge: JOLEEN TAMEZ [Primary Care Provider] Dr. Mcintyre [Cardiology] Gagan Hoang MD [Neurosurgery] 05/13/17 08:31 Subjective: Chief complaint: Low mood and anxiety, difficulty sleeping No acute events overnight. Patient endorses ongoing low mood, somewhat worse during this hospitalization. She also endorses a history of depression, no suicidal ideation now or in the past. No history of suicide attempts. She also endorses not wanting to take medications. When asked about spasms, she endorsed that she woke up once last night, for the 1st time in more than 6 months, with some sort of unusual sensation in her chest which caused her panic. She denies that it was chest pain and she stated that it was over as soon as she woke up. She denies cardiac history including any atrial fibrillation or other arrhythmias. She did have a history of cardiac arrest during placement of a percutaneous gastrostomy tube. Plan for cardiac monitoring as an outpatient. She denies any other times with palpitations or unusual chest sensations. Difficulty sleeping with ongoing insomnia, denies any desire for any medications. Medications were discussed with her and she declined any. Otherwise no new shortness of breath, no new chest pain, no new numbness, tingling, or weakness. Therapy is going well, she endorses improved neurological status of her left side including improved sensation of her arm and leg. Objective: Vital Signs Temp Pulse Resp BP Pulse Ox 36.6 C 74 18 93/56 L 92 05/13/17 07:46 05/13/17 07:46 05/13/17 07:46 05/13/17 07:46 05/13/17 07:46 Laboratory Results 05/09/17 06:15 05/05/17 06:10 05/12/17 05/13/17 05/14/17 05:59 05:59 05:59 Intake Total 1136 445 Output Total 2150 Balance -1014 445 Physical Exam - Physical Exam General Appearance: WD/WN, alert, no apparent distress EENT: No scleral icterus (R), No scleral icterus (L) Neck: other (Cervical collar in place) Respiratory: chest non-tender, lungs clear, normal breath sounds, No respiratory distress, No accessory muscle use, No decreased breath sounds, No rales, No rhonchi, No wheezing Cardiac/Chest: normal peripheral pulses, regular rate, rhythm, No edema, No gallop, No extra beats, No irregularly irregular Abdomen: normal bowel sounds, non-tender, soft Skin: normal color, warm/dry, No cyanosis, No diaphoresis Extremities: No pedal edema, No swelling Neuro/Psych: alert, sensory deficit (Left side arm), depressed affect, No normal mood/affect (Depressed mood, denies any suicidal ideation) ICD10 Worksheet Patient Problems: Problems Problem Status Onset DVT (deep venous thrombosis) Acute Fusion of spine of lumbar region Acute Pulmonary embolism Acute
[2017-05-13] MEDS: buPROPion 100 MG TAB TUBE SCH (08:47)
[2017-05-13] MEDS: metFORMIN HCL 500 MG TAB TUBE SCH (08:47)
[2017-05-13] MEDS: CHOLECALCIFEROL VIT D3 2,000 UNITS TAB/CAP PO SCH (08:47)
[2017-05-13] MEDS: ENOXAPARIN 40 MG/0.4 ML SYR SC SCH (08:50)
[2017-05-13] MEDS: POLYETHYLENE GLYCOL 3350 17 GM PKT TUBE SCH (08:51)
[2017-05-13] MEDS ORDERED: DIAZEPAM 5 MG TAB PO PRN (13:22)
[2017-05-13] MEDS ORDERED: FAMOTIDINE 20 MG TAB PO PRN (13:22)
[2017-05-13] MEDS ORDERED: SENNOSIDES 1 TAB PO PRN (13:24)
[2017-05-13] MEDS: buPROPion 100 MG TAB PO SCH (13:43)
[2017-05-13] MEDS: metFORMIN HCL 500 MG TAB PO SCH (17:12)
[2017-05-13] MEDS: CYCLOBENZAPRINE 10 MG TAB PO SCH (20:21)
[2017-05-13] MEDS: LATANOPROST 0.005% 2.5 ML OPHT DROPS EACHEYE SCH (23:29)
[2017-05-14] MEDS: HYDROCODONE/APAP 10/325 TAB PO PRN ×2 (07:53→18:40)
[2017-05-14] MEDS: CHOLECALCIFEROL VIT D3 2,000 UNITS TAB/CAP PO SCH (07:54)
[2017-05-14] MEDS: ENOXAPARIN 40 MG/0.4 ML SYR SC SCH (07:54)
[2017-05-14] MEDS: buPROPion 100 MG TAB PO SCH ×2 (07:54→14:14)
[2017-05-14] MEDS: metFORMIN HCL 500 MG TAB PO SCH ×2 (07:54→17:32)
[2017-05-14] MEDS: POLYETHYLENE GLYCOL 3350 17 GM PKT PO SCH (07:55)
[2017-05-14] MEDS: oxyCODONE IR 5 MG TAB PO PRN (13:17)
--- NOTE | 2017-05-14 13:52 | SOAPPROG ---
SOAP Progress Note Assessment/Plan: Assessment: 67 yo F s/p revision of anterior cervical diskectomy and fusion C3-C4, and ACDF C5-C6 0n 04/24/17, with h/o CVA 2014 and residual L weakness: * Debility status post cervical spine surgery. Initial FIM 60 on 05/05/17; increase to 87 on 05/12/2017. Standby assist with 4WW walker for transfers and ambulation up to 100 feet. Has decreased endurance, balance and midline control. Independent for bed mobility if head of bed is raised and she uses bed rails; working on bed mobility with head of bed flat. Requires standby assist for dressing, supervision for toileting. Has been given a blanket folder for objects retrieval if she drops something. UB dressing S except min A for cervical collar; min A for LB dressing. Set-up/S for ADLs. Continue PT and OT to optimize mobility and activities of daily living. PT approaching her more as a post stroke patient than as a post neck surgery patient, working on strength, balance and endurance. * Dysphagia status post cervical spine surgery. Advanced to nectar thick liquids and dysphagia 2 texture. Tube feeding has been discontinued. Continue treatment by Speech and Language Pathology. * F/E/N. Adding supplements for adequate protein and calorie intake. Continue management per dietitian. * Pain management. Continue fentanyl transdermal at 50 mcg/hour, changing q.72 hours. Continue hydromorphone/acetaminophen combination medication as well as oxycodone immediate release. PRN meds have been approximately equal to 37.5 mcg /hr fentanyl, mostly daytime due to increased activity. Continue current management; patient does not want to increase fentanyl. * Depression. Discussed options. She reports she was excessively somnolent when treated with fluoxetine in the past, so will not initiate SSRIs or SNRIs. Trial of bupropion starting 05/04/17 at a small dose 75 mg at 8 in the morning and 1400. Tolerating well; increase dose to 100 mg starting 05/07/17. Evaluation by director social service for non-pharmacologic interventions. * Insomnia. At baseline, sleeping well some nights and not well other nights. Changed melatonin to PRN 05/08/17. * Question of muscle spasm. She is prescribed on hospital discharge cyclobenzaprine, methocarbamol as well as diazepam. We will discontinue methocarbamol and will monitor for need for antispasmodics. We will discontinue if she shows no benefit. Chronic/stable conditions: * Hypoxia, resolved as of 05/13/17. Multifactorial, with diastolic dysfunction on echocardiogram, history of smoking, history of pulmonary embolus, and bilateral lower lobe atelectasis on abdominal CT. Anemia may contribute.. Incentive spirometry. No signs or symptoms of pneumonia or pulmonary embolus. * Anemia, improving on labs 05/09/17. * Diarrhea. Resolved with formula change. * History of cerebrovascular accident approximately 2 years ago. She reports that she was not placed on aspirin or statin per Neurologist Dr. Dai. Stroke was treated at [facility]. * Osteoporosis with h/o hip fracture. D/W Jesus Chavira, Neurosurgery PA: no contraindication to alendronate. D/W pharmacy: no longer on formulary; hospital policy is to restart after discharge. D/W patient regarding possibility of injectable zoledronic acid if it seems her prognosis for recovering swallowing is weeks to months. * Diabetes mellitus type 2. Hemoglobin A1c 6.7 on 05/05/17. No indication to increase metformin. * Sinus arrest 5 seconds during PEG placement. Follow-up with Cardiology for 30 - day event monitor after discharge. * History of deep venous thrombosis and pulmonary embolus. She is on enoxaparin as ordered out of the hospital, which will be continued. D/W java performance engineer Dr. Barba 05/09/17: OK to d/c anticoagulation when mobility improves. Ambulating greater than 150 feet with therapies as of 05/14/2017; agrees to meals. Discontinue enoxaparin starting 05/15/2017. Wound Care Instructions: leave steri strips on until 14-17 days post op then able to remove (05/13 - 05/16/17) Discharge 05/16/2017. Plan for home PT, OT, ELECTRON BEAM MACHINE WELDER SETTER, nurse regarding tube flushes for PEG tube. House is ADA compliant as she cared for her there who is chronically ill and subsequently . Need to clarify level of support available from boyfriend/roommate at home. Follow-up after discharge: JOLEEN TAMEZ [Primary Care Provider] Dr. Mcintyre [Cardiology] Gagan Hoang MD [Neurosurgery] 05/14/17 13:46 05/14/17 14:08 Subjective: Reports some fatigue with poor sleep last night. She reports history of sleeping well some nights and not well on other nights in the past. Pain is adequately controlled; has new pain between the shoulder blades which she thinks is due to activity with physical therapy. She denies fevers, chills, cough, dyspnea. Objective: Vital Signs Temp Pulse Resp BP Pulse Ox 36.6 C 85 17 97/61 L 90 L 05/14/17 06:31 05/14/17 06:31 05/14/17 06:31 05/14/17 06:31 05/14/17 06:31 Laboratory Results 05/09/17 06:15 05/05/17 06:10 05/13/17 05/14/17 05/15/17 05:59 05:59 05:59 Intake Total 445 696 200 Balance 445 696 200 Physical Exam - Physical Exam General Appearance: WD/WN, alert, no apparent distress Respiratory: normal breath sounds, No crackles, No rhonchi, No wheezing Cardiac/Chest: regular rate, rhythm, No edema, No diastolic murmur, No systolic murmur Skin: normal color, warm/dry Neuro/Psych: alert, normal mood/affect, oriented x 3 ICD10 Worksheet Patient Problems: Problems Problem Status Onset DVT (deep venous thrombosis) Acute Fusion of spine of lumbar region Acute Pulmonary embolism Acute
[2017-05-14] MEDS: CYCLOBENZAPRINE 10 MG TAB PO SCH (21:11)
[2017-05-14] MEDS: LATANOPROST 0.005% 2.5 ML OPHT DROPS EACHEYE SCH (21:17)
[2017-05-15] MEDS: HYDROCODONE/APAP 10/325 TAB PO PRN ×4 (01:43→22:30)
[2017-05-15] MEDS: metFORMIN HCL 500 MG TAB PO SCH ×2 (07:48→18:12)
[2017-05-15] MEDS: buPROPion 100 MG TAB PO SCH ×2 (07:48→14:32)
[2017-05-15] MEDS: fentaNYL 50 MCG PATCH TD SCH (08:43)
[2017-05-15] MEDS: POLYETHYLENE GLYCOL 3350 17 GM PKT PO SCH (08:44)
[2017-05-15] MEDS: CHOLECALCIFEROL VIT D3 2,000 UNITS TAB/CAP PO SCH (08:44)
--- NOTE | 2017-05-15 11:45 | PDOREHIP ---
Admission [facility] - Admission - 3 Day Assessment Period Admission Date/Day 1: 05/04/17 Day 2: 05/05/17 Day 3: 05/06/17 Discharge [facility] - Discharge - 3 Day Assessment Period 2 Days Prior to Anticipated Discharge Date: 05/14/17 1 Day Prior to Anticipated Discharge Date: 05/15/17 Anticipated Discharge Date: 05/16/17 - Discharge Skin Conditions Unhealed Pressure Ulcer (1 or more/Stage 1 or >)-Discharge: 0. No
--- NOTE | 2017-05-15 12:43 | SOAPPROG ---
SOAP Progress Note Assessment/Plan: Assessment/Plan: 67 yo F s/p revision of anterior cervical diskectomy and fusion C3-C4, and ACDF C5-C6 0n 04/24/17, with h/o CVA 2014 and residual L weakness: Today's update: Patient is participating very well in therapies and continued to make gains. Goal is to discharge home tomorrow with home health physical therapy, occupational therapy, speech therapy, and RN. A total of 35 minutes was spent on the floor in the care of the patient, the majority of which was spent in counseling and coordination of care regarding discharge planning for tomorrow. Remainder of plan below is unchanged. * Debility status post cervical spine surgery. Initial FIM 60 on 05/05/17; increase to 87 on 05/12/2017. Standby assist with 4WW walker for transfers and ambulation up to 100 feet. Has decreased endurance, balance and midline control. Independent for bed mobility if head of bed is raised and she uses bed rails; working on bed mobility with head of bed flat. Requires standby assist for dressing, supervision for toileting. Has been given a hoop driving machine operator helper for objects retrieval if she drops something. UB dressing S except min A for cervical collar; min A for LB dressing. Set-up/S for ADLs. Continue PT and OT to optimize mobility and activities of daily living. PT approaching her more as a post stroke patient than as a post neck surgery patient, working on strength, balance and endurance. * Dysphagia status post cervical spine surgery. Advanced to nectar thick liquids and dysphagia 2 texture. Tube feeding has been discontinued. Continue treatment by Speech and Language Pathology. * F/E/N. Adding supplements for adequate protein and calorie intake. Continue management per dietitian. * Pain management. Continue fentanyl transdermal at 50 mcg/hour, changing q.72 hours. Continue hydromorphone/acetaminophen combination medication as well as oxycodone immediate release. PRN meds have been approximately equal to 37.5 mcg /hr fentanyl, mostly daytime due to increased activity. Continue current management; patient does not want to increase fentanyl. * Depression. Discussed options. She reports she was excessively somnolent when treated with fluoxetine in the past, so will not initiate SSRIs or SNRIs. Trial of bupropion starting 05/04/17 at a small dose 75 mg at 8 in the morning and 1400. Tolerating well; increase dose to 100 mg starting 05/07/17. Evaluation by long term care social worker for non-pharmacologic interventions. * Insomnia. At baseline, sleeping well some nights and not well other nights. Changed melatonin to PRN 05/08/17. * Question of muscle spasm. She is prescribed on hospital discharge cyclobenzaprine, methocarbamol as well as diazepam. We will discontinue methocarbamol and will monitor for need for antispasmodics. We will discontinue if she shows no benefit. Chronic/stable conditions: * Hypoxia, resolved as of 05/13/17. Multifactorial, with diastolic dysfunction on echocardiogram, history of smoking, history of pulmonary embolus, and bilateral lower lobe atelectasis on abdominal CT. Anemia may contribute.. Incentive spirometry. No signs or symptoms of pneumonia or pulmonary embolus. * Anemia, improving on labs 05/09/17. * Diarrhea. Resolved with formula change. * History of cerebrovascular accident approximately 2 years ago. She reports that she was not placed on aspirin or statin per Neurologist Dr. Dai. Stroke was treated at [facility]. * Osteoporosis with h/o hip fracture. D/W Jesus Chavira, Neurosurgery PA: no contraindication to alendronate. D/W pharmacy: no longer on formulary; hospital policy is to restart after discharge. D/W patient regarding possibility of injectable zoledronic acid if it seems her prognosis for recovering swallowing is weeks to months. * Diabetes mellitus type 2. Hemoglobin A1c 6.7 on 05/05/17. No indication to increase metformin. * Sinus arrest 5 seconds during PEG placement. Follow-up with Cardiology for 30 - day event monitor after discharge. * History of deep venous thrombosis and pulmonary embolus. She is on enoxaparin as ordered out of the hospital, which will be continued. D/W payroll technician Dr. Barba 05/09/17: OK to d/c anticoagulation when mobility improves. Ambulating greater than 150 feet with therapies as of 05/14/2017; agrees to meals. Discontinue enoxaparin starting 05/15/2017. Wound Care Instructions: leave steri strips on until 14-17 days post op then able to remove (05/13 - 05/16/17) Discharge 05/16/2017. Plan for home PT, OT, GREENHOUSE INSTRUCTOR, nurse regarding tube flushes for PEG tube. House is ADA compliant as she cared for her there who is chronically ill and subsequently . Need to clarify level of support available from boyfriend/roommate at home. Follow-up after discharge: JOLEEN TAMEZ [Primary Care Provider] Dr. Mcintyre [Cardiology] Gagan Hoang MD [Neurosurgery] 05/13/17 08:31 05/15/17 12:40 Subjective: Chief complaint: Discharge planning No acute events overnight. The patient is anxious but also looking forward to going home. She notes that she still has left-sided paresthesias and also notes that her dysmetria was somewhat worse after her most recent surgery, but she notes improvements in all of these aspects over the past days. Sleeping well, no new numbness, tingling, or weakness and no new shortness of breath or chest pain. Objective: Vital Signs Temp Pulse Resp BP Pulse Ox 36.7 C 93 18 101/68 93 05/15/17 08:00 05/15/17 08:00 05/15/17 08:00 05/15/17 08:00 05/15/17 08:00 Laboratory Results 05/09/17 06:15 05/05/17 06:10 05/14/17 05/15/17 05/16/17 05:59 05:59 05:59 Intake Total 696 636 60 Balance 696 636 60 Physical Exam - Physical Exam General Appearance: WD/WN, alert, no apparent distress EENT: No scleral icterus (R), No scleral icterus (L) Respiratory: No respiratory distress, No accessory muscle use Cardiac/Chest: normal peripheral pulses, regular rate, rhythm, No edema Skin: normal color, warm/dry, No cyanosis Extremities: No pedal edema, No swelling Neuro/Psych: alert, other (Mildly decreased sensation on the left distal fingers compared to the right, normal sensation in the left hand and arm compared to the right. Dysmetria on [id number] testing on the left, present but very mild on the right.), No normal mood/affect (Somewhat anxious) ICD10 Worksheet Patient Problems: Problems Problem Status Onset DVT (deep venous thrombosis) Acute Fusion of spine of lumbar region Acute Pulmonary embolism Acute
[2017-05-15] MEDS: CYCLOBENZAPRINE 10 MG TAB PO SCH (20:00)
[2017-05-15] MEDS: LATANOPROST 0.005% 2.5 ML OPHT DROPS EACHEYE SCH (20:01)
[2017-05-15 20:15] VITALS: RESP 16
[2017-05-16 06:13] VITALS: BP 129/84; PULSE 72; TEMP 98.1; O2SAT 96
[2017-05-16] MEDS: oxyCODONE IR 5 MG TAB PO PRN ×2 (06:19→11:52)
[2017-05-16] MEDS: buPROPion 100 MG TAB PO SCH (08:34)
[2017-05-16] MEDS: metFORMIN HCL 500 MG TAB PO SCH (08:34)
[2017-05-16] MEDS: CHOLECALCIFEROL VIT D3 2,000 UNITS TAB/CAP PO SCH (08:34)
[2017-05-16] MEDS: POLYETHYLENE GLYCOL 3350 17 GM PKT PO SCH (08:36)
--- NOTE | 2017-05-16 18:02 | GDS ---
[f rep st] DISCHARGE SUMMARY ADMITTING DIAGNOSIS: Debility and dysphagia status post C-spine anterior and posterior decompression and fusion surgery. DISCHARGE DIAGNOSIS: Debility and dysphagia status post C-spine anterior and posterior decompression and fusion surgery. ADDITIONAL DIAGNOSES: 1. Chronic pain. 2. Depression. CONSULTATIONS: None. PROCEDURES: None. COMPLICATIONS: None. HISTORY/HOSPITAL COURSE: This patient came to [facility] from [facility] where she had undergone revision of a prior C5-C6 anterior cervical decompression and fusion and a C3-C4, anterior cervical decompression and fusion with posterior fusion and decompression of the spinal cord. She had severe dysphagia in her hospital stay and a PEG tube was placed for nutrition and hydration. She had considerable pain which was treated with a fentanyl patch, patient controlled analgesia while she was in the hospital and subsequently oral medications. During placement of the PEG tube she had a 5.4 second asystole. She did well in rehabilitation. Her initial functional independence measure was 60 which was consistent with fpc level of function. This improved to 87 as of 05/12/2017, which is consistent with assisted living level of function. She ambulated with a 4-wheeled walker with standby assist. She was able to ambulate up to 100 feet. She had decreased endurance, balance and midline control. She accomplished upper body dressing with supervision except for minimal assist regarding her cervical collar. She required minimal assist for lower body dressing; otherwise, she required set up to supervision for ADLs. 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 Regarding dysphagia, she was advanced to nectar thick liquids and dysphagia 2 texture. She was able to take adequate calories and hydration on this texture and tube feeding was discontinued. Regarding pain management, fentanyl transdermal was continued at 50 mcg/hour, changing q.72 hours. Otherwise, she was taking a hydromorphone and acetaminophen combination and her pain control was stable with this. She continued to complain primarily of low back pain. She was quite depressed when she was admitted partly due to her medical situation which was much more complicated than she had anticipated prior to the surgery. She reports a history of somnolence when treated with fluoxetine in the past. Initiated bupropion at 75 mg b.i.d. in the morning and 2 in the afternoon. She tolerated this well and the dose was increased to 100 mg. She had an improved affect and no longer was reporting depression. LABORATORIES AND STUDIES: During her stay: CBC showed improving anemia. On , hemoglobin was 10.2 and hematocrit was 30.2. On 05/09/2017 hemoglobin was 10.6 and hematocrit was 33.1. Serum chemistry showed overall normal renal function and electrolytes though carbon dioxide was somewhat high at 32, glucose was somewhat high at 124. She had a low vitamin D at 19.5 and received supplementation. Due to the elevated glucose a hemoglobin A1c was checked and was 6.7. DISCHARGE PLAN: Condition upon discharge was good. ACTIVITY: Is ad madi. She is advised to have supervision for safety regarding fall risk. DIET: Consistent carbohydrates 1800 calorie ADA diet. Texture is dysphagia 2 with nectar thick liquids. DATE OF NEXT APPOINTMENT: She has followup scheduled with nurse discharge planner, Mello Mcintyre, on 05/20/2017 at 9:40 a.m.; with paint line supervisor, Dr. Chanell Kohler, on 05/20/2017 at 1:30 p.m.; with primary care provider, Dr. Alberto Meier 05/20/2017 at 8:45 p.m. and with neurosurgeon, Dr. Gagan Hoang, on 05/22/2017 at 3:30 p.m. MEDICATIONS AT DISCHARGE: 1. Ranitidine 300 mg p.o. daily p.r.n. 2. Methocarbamol 750 mg p.o. q.i.d. p.r.n. 3. Metformin 500 mg p.o. twice daily. 4. Fentanyl 50 mg transdermal, change to 72 hours. 5. Bupropion 100 mg p.o. twice daily at 0800 and 1400. 6. Melatonin 3 mg p.o. at bedtime p.r.n. 7. Latanoprost 0.005% 1 drop each eye at bedtime. 8. Hydrocodone/acetaminophen 10/325 1-2 tabs p.o. q.6 hours p.r.n. 9. Cyclobenzaprine 10 mg p.o. at bedtime. 10. Cholecalciferol 2000 units p.o. daily. ISSUES TO BE ADDRESSED AT FOLLOW UP: 1. Debility, reduced endurance. Need for supervision for safety. She will have home physical and occupational therapy. She can follow up with her primary care provider regarding these issues. 2. Dysphagia. She will have home speech and language pathology. There will be a nurse visit at home regarding tube flushes for the PEG tube and she can follow up with primary care regarding her swallow. 3. Pain management. She will see the paint line supervisor. 4. Depression was considerably improved through medication and therapy per social work. She can follow up with her primary care provider. 5. History of diastolic dysfunction and hypoxia, and 5.4 second sinus arrest during PEG placement. Hypoxia resolved during her stay. She will follow up with Cardiology. Copy requested to: Mello Mcintyre M.D. Alberto Meier M.D. /[id number]/MODL MTDD
[2017-05-18] MEDS ORDERED: fentaNYL 50 MCG PATCH TD SCH (09:00)
== END 2017-05-16 12:05 | disposition home health service (06) | DRG 949 ==
LOC: BREH 11:46
PROVIDERS: ADMIT Internal Medicine; ATTEND Internal Medicine
PROC: F08Z3FZ Feeding/Eating Treatment using Assistive, Adaptive, Supportive or Protective Equipment (ICD-10-PCS; principal; 2017-05-04)
PROC: F08Z2FZ Grooming/Personal Hygiene Treatment using Assistive, Adaptive, Supportive or Protective Equipment (ICD-10-PCS; principal; 2017-05-04)
PROC: F08Z1FZ Dressing Techniques Treatment using Assistive, Adaptive, Supportive or Protective Equipment (ICD-10-PCS; principal; 2017-05-04)
PROC: F07Z5FZ Bed Mobility Treatment using Assistive, Adaptive, Supportive or Protective Equipment (ICD-10-PCS; principal; 2017-05-04)
DX: Z48.811 Encounter for surgical aftercare following surgery on the nervous system (principal); I50.30 Unspecified diastolic (congestive) heart failure; I69.352 Hemiplegia and hemiparesis following cerebral infarction affecting left dominant side; R13.19 Other dysphagia; Z93.1 Gastrostomy status; M54.2 Cervicalgia; R09.02 Hypoxemia; I69.391 Dysphagia following cerebral infarction; F32.9 Major depressive disorder, single episode, unspecified; G47.00 Insomnia, unspecified; E11.9 Type 2 diabetes mellitus without complications; Z91.81 History of falling; Z86.718 Personal history of other venous thrombosis and embolism; Z86.711 Personal history of pulmonary embolism; Z85.040 Personal history of malignant carcinoid tumor of rectum; Z87.891 Personal history of nicotine dependence; Z87.81 Personal history of (healed) traumatic fracture
CPT/HCPCS: 92507-GN; 92522-GN; 92526-GN; 92610-GN; 97110-GO; 97110-GP; 97112-GP; 97116-GP; 97162-GP; 97166-GO; 97530-GO; 97530-GP; 97535-GO; J1650

== ENCOUNTER → 2017-06-06 | Day surgery (SDC) | payer OTHER | END | disposition home or self-care (01) | LOC: FIMAGING 14:29 | PROVIDERS: ATTEND Internal Medicine | DX: Z43.1 Encounter for attention to gastrostomy (principal) ==